=== PATIENT | female | born 1945 | race Hispanic/Latino ===

== ENCOUNTER → 2019-03-30 | Outpatient (CLI) | payer MEDICARE | END | disposition home or self-care (01) | LOC: RAH 12:54 | PROVIDERS: ATTEND Family Medicine | DX: Z12.31 Encounter for screening mammogram for malignant neoplasm of breast (principal) | CPT/HCPCS: 77067 ==

== ENCOUNTER → 2023-04-05 | Outpatient (CLI) | payer MEDICARE | END | disposition home or self-care (01) | LOC: SHCH 11:08 | PROVIDERS: ATTEND Internal Medicine | DX: I08.0 Rheumatic disorders of both mitral and aortic valves (principal); R94.31 Abnormal electrocardiogram [ECG] [EKG]; I10 Essential (primary) hypertension; E11.9 Type 2 diabetes mellitus without complications; E78.5 Hyperlipidemia, unspecified | CPT/HCPCS: 93306 ==

== ENCOUNTER 2024-11-16 09:35 | Inpatient (IN) | payer MEDICARE ==
[~2024-11-16] VITALS: Ht 165.1 cm; Wt 79.7 kg
[2024-11-16] VITALS (12 sets, daily range): BP systolic 91–148; BP diastolic 59–80; PULSE 61–98; RESP 16–20; TEMP 97.5–98.7; O2SAT 98–100
--- NOTE | 2024-11-16 10:51 | ERN ---
ED Note History of Present Illness Stated Complaint: MULTIPLE COMPLAINTS Chief Complaint: Multiple Complaints Time Seen by MD: 09:43 Dictation: Patient came to the ER complaining of not feeling well, feeling tired, weak, she stated that she was seen by her PCP and was started on antidepressant/antianxiety medication but she has been noncompliant with the medication. But lately she has been feeling more and more weak. Patient brought a bottle of citalopram 10 mg which she started taking again yesterday after symptoms has been worsening. Allergies: Coded Allergies: No Known Drug Allergies (Unverified Allergy, Unknown, 11/16/24) Past Medical History Past Medical History: Anxiety, Depression, Diabetes-Type II, High Cholesterol, Hypertension Surgical History: None Review of System Dictation NEGATIVE EXCEPT PER HPI Constitutional: Feeling weak and tired, no fever or chills. Eyes: Negative for injury, pain,redness, and discharge ENT: Negative for injury,pain or swelling Cardiovascular: denies chest pain, palpitations, and edema Respiratory: Negative for shortness of breath, cough, and wheezing, Abdomen/GI: Negative for abdominal pain, nausea, vomiting, diarrhea, and constipation Back: Negative for injury and pain : Negative for injury, bleeding and discharge MS/Extremity: Negative for injury and deformity Skin: Negative for rash, and discoloration Neuro: Negative for headache, weakness, numbness, tingling, and seizure Psych: Negative for suicide ideation, homicidal ideation, and hallucinations Initial Vital Sign VS Vital Signs Date Time Temp Pulse Resp B/P (MAP) Pulse Ox O2 Delivery O2 Flow Rate FiO2 11/16/24 09:42 98.2 70 16 166/80 100 Room Air 11/16/24 12:29 0 21 Physical Exam Dictation General: awake, alert, NAD Head/Face: Normocephalic, atraumatic Eyes: PERRL, EOMI, vision at baseline ENT: oral cavity clear, TMs clear, no signs of infection Neck: Trachea midline, supple, no nuchal rigidity Cardiovascular: RRR, normal S1/S2, No MRGs, no JVD Respiratory: CTAB, no respiratory distress, No rales or wheezes Abdomen: Soft , no tender Skin: Warm, dry, normal turgor, no rash MS/Extremity: Pulses equal, no cyanosis, neurovascular intact, FROM Neuro: COAx4, GCS 15, strength 5/5, CN 2-12 intact, normal cerebellar exam, normal gait, Psych: Normal behavior, mood, and affect normal Results (Laboratory/Radiology) Laboratory/Radiology Laboratory Tests Test 11/16/24 10:55 11/16/24 12:18 11/16/24 12:37 White Blood Count 10.1 K/uL (4.8-10.8) Red Blood Count 4.26 MIL/uL (4.00-5.50) Hemoglobin 12.7 g/dL (12.0-16.0) Hematocrit 38.4 % (36-48) Mean Corpuscular Volume 90.1 fL (79-99) Mean Corpuscular Hemoglobin 29.8 pg (27.0-33.0) Mean Corpuscular Hemoglobin Concent 33.1 g/dL (32.0-36.0) Red Cell Distribution Width 13.2 % (11.0-15.5) Platelet Count 246 K/uL (130-400) Mean Platelet Volume 10.9 fL (7.5-10.5) H Immature Granulocyte % (Auto) 0.3 % (0-1) Neutrophils (%) (Auto) 74.6 % (40.0-77.0) Lymphocytes (%) (Auto) 19.4 % (21.0-51.0) L Monocytes (%) (Auto) 4.7 % (3.0-13.0) Eosinophils (%) (Auto) 0.6 % (0.0-8.0) Basophils (%) (Auto) 0.4 % (0.0-5.0) Neutrophils # (Auto) 7.5 K/uL (1.8-7.7) Lymphocytes # (Auto) 2.0 K/uL (1.0-4.8) Monocytes # (Auto) 0.5 K/uL (0.1-1.0) Eosinophils # (Auto) 0.06 K/uL (0.00-0.70) Basophils # (Auto) 0.04 K/uL (0.00-0.20) Absolute Immature Granulocyte (auto 0.03 K/uL (0-1) Nucleated Red Blood Cells 0.0 % (0.0-0.19) Prothrombin Time 10.3 SEC (9.6-11.6) Prothromb Time International Ratio <= 0.93 (0.85-1.15) Activated Partial Thromboplast Time 27.3 SEC (26.3-35.5) Sodium Level 141 mmol/L (136-145) Potassium Level 4.0 mmol/L (3.5-5.1) Chloride Level 103 mmol/L (101-111) Carbon Dioxide Level 31 mmol/L (21-32) Blood Urea Nitrogen 27 mg/dL (7-18) H Creatinine 1.3 mg/dL (0.5-1.0) H Glomerular Filtration Rate Calc 42 mL/min (>90) Random Glucose 164 mg/dL (70-105) H Total Calcium 9.7 mg/dL (8.5-10.1) Troponin I High Sensitivity 2662 ng/L (4-50) *H 2024 ng/L (4-50) *H B-Type Natriuretic Peptide 108 pg/mL (0-100) H Urine Color LIGHT-YELLOW (YELLOW) Urine Appearance CLEAR (CLEAR) Urine pH 5.5 (5.0-8.0) Urine Specific [place] 1.013 (1.001-1.031) Urine Protein 20 mg/dL (NEGATIVE) H Urine Glucose (UA) NEGATIVE mg/dL (NEGATIVE) Urine Ketones 5 mg/dL (NEGATIVE) H Urine Occult Blood NEGATIVE (NEGATIVE) Urine Nitrate NEGATIVE (NEGATIVE) Urine Bilirubin NEGATIVE mg/dL (NEGATIVE) Urine Urobilinogen 0.2 mg/dL (0.2-1.0) Urine Leukocyte Esterase 250 Jeane/uL (NEGATIVE) H Urine RBC 0-1 /HPF (0-1) Urine WBC 11-25 /HPF (0-1) H Urine Bacteria MANY /HPF (None Seen) Urine Yeast RARE /HPF (None Seen) ED Course ED Course Orders Procedure Category Date Status Time Cbc With Differential LAB 11/16/24 Complete 10:43 Basic Metabolic Panel LAB 11/16/24 Complete 10:43 Urinalysis Profile LAB 11/16/24 Complete 10:43 Troponin I High LAB 11/16/24 Complete Sensitivity 10:43 12 Lead Ekg Tracing- EKG 11/16/24 Logged Technical 12:13 B-Type Natriuretic LAB 11/16/24 Complete Peptide 12:13 Pt And Ptt LAB 11/16/24 Complete 12:13 Chest 1vw RAD 11/16/24 Resulted 12:14 Chest 1vw RAD 11/16/24 Logged 12:14 Aspirin 325mg Tab PHA 11/16/24 Complete (Aspirin 325mg Tab) 12:30 Metoprolol Tartrate PHA 11/16/24 Complete 25 Mg Tab (Lopressor 12:30 Initiate Heparin DONELL 11/16/24 In Process Treatment Pro 12:26 Heparin 5,000 Unit PHA 11/16/24 In Process Vial (Heparin 5,000 U 13:30 Heparin 25,000 PHA 11/16/24 In Process Units/250ml D5w 13:30 Heparin Protocol CPOE 11/16/24 Transmitted Monitoring 12:26 Troponin I High LAB 11/16/24 Complete Sensitivity 12:28 Culture Urine CHICA 11/16/24 In Process 12:51 Current Medications Medications (Trade) Dose Ordered Sig/Loyda Route PRN Reason Start Time Stop Time Status Last Admin Dose Admin Aspirin (Aspirin 325mg Tab) 325 mg ONCE ONCE PO 11/16/24 12:30 11/16/24 12:31 DC 11/16/24 12:30 Heparin Sodium (Porcine) (HEParin 5,000 UNIT VIAL) *calculation based on ACTUAL B... AD PRN IV HEPARIN PROTOCOL 11/16/24 13:30 12/16/24 13:29 11/16/24 12:40 Heparin Sodium/ Dextrose 250 ml @ 0 mls/hr Q6H IV 11/16/24 13:30 12/16/24 13:29 11/16/24 12:37 Metoprolol Tartrate (loprESSOR) 12.5 mg ONCE ONCE PO 11/16/24 12:30 11/16/24 12:31 DC 11/16/24 12:32 Vital Signs Date Time Temp Pulse Resp B/P (MAP) Pulse Ox O2 Delivery O2 Flow Rate FiO2 11/16/24 12:29 98.4 88 18 174/74 98 Room Air* 0 21 11/16/24 09:42 98.2 70 16 166/80 100 Room Air Medical Decision Making MDM 78-year-old female who presented to ER complaining of tiredness, weakness. She mentioned history of anxiety and has been treated for that with the citalopram by PCP. Patient is noncompliant with medication. 1 possible electrolyte disturbance 2. Depression 3. UTI. DX & DISP Disposition: Inpatient Decision to Admit Date: Nov 16, 2024 Decision to Admit Time: 13:33 Departure Impression: Primary Impression: Non-ST elevated myocardial infarction Condition: Stable Referrals: TRESA EDWARDS DO (PCP) Patient was admitted by the hospitalist team for further workup by Cardiology, GLASS BLOWING LATHE OPERATOR from . Lukas rubber mill operator was called and case discussed with the him. BAR REYES MD Nov 16, 2024 10:51
[2024-11-16 11:06] LABS: BASOPHILS # (AUTO) 0.04 K/uL (0.00-0.20); BASOPHILS % (AUTO) 0.4 % (0.0-5.0); EOSINOPHILS # (AUTO) 0.06 K/uL (0.00-0.70); EOSINOPHILS % (AUTO) 0.6 % (0.0-8.0); HEMATOCRIT 38.4 % (36-48); IMMATURE GRANULOCYTE ABSOLUTE 0.03 K/uL (0-1); LYMPHOCYTES % (AUTO) 19.4 % (21.0-51.0); MEAN CORPUSCULAR HEMOGLOBIN 29.8 pg (27.0-33.0); MEAN CORPUSCULAR HGB CONC 33.1 g/dL (32.0-36.0); MEAN CORPUSCULAR VOLUME 90.1 fL (79-99); MONOCYTES # (AUTO) 0.5 K/uL (0.1-1.0); MONOCYTES % (AUTO) 4.7 % (3.0-13.0); NEUTROPHILS # (AUTO) 7.5 K/uL (1.8-7.7); NEUTROPHILS % (AUTO) 74.6 % (40.0-77.0); PLATELET COUNT (AUTO) 246 K/uL (130-400); RED BLOOD CELL COUNT(AUTO) 4.26 MIL/uL (4.00-5.50); RED CELL DISTRIBUTION WIDTH 13.2 % (11.0-15.5); WHITE BLOOD COUNT (AUTO) 10.1 K/uL (4.8-10.8)
[2024-11-16 11:14] LABS: CREATININE 1.3 mg/dL (0.5-1.0)
--- NOTE | 2024-11-16 12:04 | NUR ---
[facility] [id number]
[2024-11-16] MEDS: ASPIRIN 325MG TAB PO ONE (12:30)
[2024-11-16] MEDS: metoPROLOL tartRATE 25 MG TAB PO ONE ×2 (12:32→15:00)
[2024-11-16 12:33] LABS: INR <= 0.93 (0.85-1.15); PROTHROMBIN TIME 10.3 SEC (9.6-11.6)
[2024-11-16 12:35] LABS: PARTIAL THROMBOPLASTIN TIME 27.3 SEC (26.3-35.5)
[2024-11-16] MEDS: HEParin 25,000 UNITS/250ML D5W 250 ML IV SCH (12:37)
[2024-11-16] MEDS: HEParin 5,000 UNIT VIAL IV PRN (12:40)
[2024-11-16 12:43] LABS: APPEARANCE,URINE CLEAR (CLEAR); BILIRUBIN,URINE NEGATIVE (NEGATIVE); COLOR,URINE LIGHT-YELLOW (YELLOW); GLUCOSE, URINE (UA) NEGATIVE (NEGATIVE); KETONES,URINE 5 mg/dL (NEGATIVE); LEUKOCYTE ESTERASE ,URINE 250 Leu/uL (NEGATIVE); NITRATE,URINE NEGATIVE (NEGATIVE); OCCULT BLOOD,URINE NEGATIVE (NEGATIVE); PH,URINE 5.5 (5.0-8.0); PROTEIN,URINE 20 mg/dL (NEGATIVE); UROBILINOGEN,URINE 0.2 mg/dL (0.2-1.0)
[2024-11-16 12:51] LABS: ADD UA MICROSCOPIC YES
[2024-11-16 12:53] LABS: BACTERIA,URINE MANY /HPF (None Seen); MUCUS,URINE RARE LPF (None Seen); RBC,URINE 0-1 /HPF (0-1); YEAST,URINE BUDDING RARE /HPF (None Seen)
--- NOTE | 2024-11-16 13:23 | HMCIMG ---
Exam Type: CHEST 1VW Clinical Information: CP Comparison: None Findings: The lungs are clear of infiltrates. The heart is normal in size. The bony and soft tissue structures of the chest are unremarkable. Impression: Clear lungs.
--- NOTE | 2024-11-16 13:50 | HP ---
[facility] PHYS[facility] Date of Service: Nov 16, 2024 Time of Service: 13:35 HISTORY OF PRESENT ILLNESS: [ ] admission date: 11/16/24 PCP: Hiwot Stockton DO chief complaints: weakness, chest tightness This is a 78-year-old female with a significant medical history of diabetes type 2, hypertension, hyperlipidemia presents in ER with chief complaints of weakness, and chest discomfort. Onset ongoing for one-week. Symptoms come and go duration about 30 minutes. Chest pain location :midsternal radiates to mid back associated with GI symptoms nausea and vomiting. Severity moderate. Denies dizziness, palpitation, shortness for breath with minimal exertion, chills and fever. Patient reports the last few three days symptoms have been constantly and decided to come to ER for further evaluation and treatment. ER workup troponin elevated non-STEMI, urinalysis positive for UTI. Labs WBCs unremarkable chemistry [id number] potassium 4.0 BUN27 creatinine 1.3 GFR 42 glucose 164 troponin 2662, 2024, BNP went away checks x-ray no signs of infiltrates. Patient was seen in ED patient appears fragile and weak. Reports no chest pain at this moment. ER initiated heparin drip tooling manager's consulted. REVIEW OF SYSTEMS a 14 point ROS obtained all relevant positives were documented otherwise ROS negative. PAST MEDICAL HISTORY: [ ] Refer to HPI PAST SURGICAL HISTORY: [ ] None PAST SOCIAL HISTORY: [ ] Denies smoking tobacco products, and alcohol use FAMILY HISTORY: [ ] Heart disease, diabetes Coded Allergies: No Known Drug Allergies (Unverified Allergy, Unknown, 11/16/24) PHYSICAL EXAM GENERAL APPEARANCE: The patient is awake, alert, and oriented, in no acute cardiopulmonary distress. NEUROLOGICAL: Cranial nerves II-XII grossly intact. Motor is 5/5 in bilateral upper and lower extremities proximal to distal. No sensory deficits. HEENT: Face is symmetric. Pupils are equal and reactive. Extraocular movements are intact. NECK: Supple. No JVD. No thyromegaly. No submental, submandibular, pre- /postauricular, occipital or supraclavicular lymphadenopathy. CHEST: Normal chest expansion. No Telemetry. LUNGS: Absence of any rales, rhonchi or any wheezing. CARDIOVASCULAR: Regular. S1 and S2 normal. No appreciable rubs, murmurs or gallops. ABDOMEN: Soft, nontender, and nondistended. There is no rebound, voluntary guarding, or rigidity. : Deferred. No Enriquez. EXTREMITIES: Non-edematous and not cyanotic. No clubbing. Good capillary refill. SKIN: No skin breakdown. Vital Sign (Last 24 Hours) 11/16/24 12:29 Temp 98.4 Pulse 88 Resp 18 B/P (MAP) 174/74 Pulse Ox 98 O2 Delivery Room Air* O2 Flow Rate 0 FiO2 21 LABS: Laboratory: Test 11/16/24 12:37 11/16/24 12:18 11/16/24 10:55 Range/Units Troponin I High Sensitivity 2023 *H 4-50 ng/L Urine Color LIGHT-YELLOW YELLOW Urine Appearance CLEAR CLEAR Urine pH 5.5 5.0-8.0 Urine Specific [place] 1.013 1.001-1.031 Urine Protein 20 H NEGATIVE mg/dL Urine Glucose (UA) NEGATIVE NEGATIVE mg/dL Urine Ketones 5 H NEGATIVE mg/dL Urine Occult Blood NEGATIVE NEGATIVE Urine Nitrate NEGATIVE NEGATIVE Urine Bilirubin NEGATIVE NEGATIVE mg/dL Urine Urobilinogen 0.2 0.2-1.0 mg/dL Urine Leukocyte Esterase 250 H NEGATIVE Jeane/uL Urine RBC 0-1 0-1 /HPF Urine WBC 11-25 H 0-1 /HPF Urine Bacteria MANY None Seen /HPF Urine Yeast RARE None Seen /HPF White Blood Count 10.1 4.8-10.8 K/uL Red Blood Count 4.26 4.00-5.50 MIL/uL Hemoglobin 12.7 12.0-16.0 g/dL Hematocrit 38.4 36-48 % Mean Corpuscular Volume 90.1 79-99 fL Mean Corpuscular Hemoglobin 29.8 27.0-33.0 pg Mean Corpuscular Hemoglobin Concent 33.1 32.0-36.0 g/dL Red Cell Distribution Width 13.2 11.0-15.5 % Platelet Count 246 130-400 K/uL Mean Platelet Volume 10.9 H 7.5-10.5 fL Immature Granulocyte % (Auto) 0.3 0-1 % Neutrophils (%) (Auto) 74.6 40.0-77.0 % Lymphocytes (%) (Auto) 19.4 L 21.0-51.0 % Monocytes (%) (Auto) 4.7 3.0-13.0 % Eosinophils (%) (Auto) 0.6 0.0-8.0 % Basophils (%) (Auto) 0.4 0.0-5.0 % Neutrophils # (Auto) 7.5 1.8-7.7 K/uL Lymphocytes # (Auto) 2.0 1.0-4.8 K/uL Monocytes # (Auto) 0.5 0.1-1.0 K/uL Eosinophils # (Auto) 0.06 0.00-0.70 K/uL Basophils # (Auto) 0.04 0.00-0.20 K/uL Absolute Immature Granulocyte (auto 0.03 0-1 K/uL Nucleated Red Blood Cells 0.0 0.0-0.19 % Prothrombin Time 10.3 9.6-11.6 SEC Prothromb Time International Ratio <= 0.93 0.85-1.15 Activated Partial Thromboplast Time 27.3 26.3-35.5 SEC Sodium Level 141 136-145 mmol/L Potassium Level 4.0 3.5-5.1 mmol/L Chloride Level 103 101-111 mmol/L Carbon Dioxide Level 31 21-32 mmol/L Blood Urea Nitrogen 27 H 7-18 mg/dL Creatinine 1.3 H 0.5-1.0 mg/dL Glomerular Filtration Rate Calc 42 >90 mL/min Random Glucose 164 H 70-105 mg/dL Total Calcium 9.7 8.5-10.1 mg/dL B-Type Natriuretic Peptide 108 H 0-100 pg/mL Current Medications Medications (Trade) Dose Ordered Sig/Loyda Route PRN Reason Start Time Stop Time Status Last Admin Dose Admin Heparin Sodium (Porcine) (HEParin 5,000 UNIT VIAL) *calculation based on ACTUAL B... AD PRN IV HEPARIN PROTOCOL 11/16/24 13:30 12/16/24 13:29 11/16/24 12:40 6,000 UNIT Heparin Sodium/ Dextrose 250 ml @ 0 mls/hr Q6H IV 11/16/24 13:30 12/16/24 13:29 11/16/24 12:37 13.7 MLS/HR DIAGNOSTICS / RADIOLOGY: [ ] REASON: CP ORDERING PHYSICIAN: BAR REYES MD PROCEDURE: CXR1VW - CHEST 1VW Exam Type: CHEST 1VW Clinical Information: CP Comparison: None Findings: The lungs are clear of infiltrates. The heart is normal in size. The bony and soft tissue structures of the chest are unremarkable. Impression: Clear lungs. ASSESSMENT: Non-STEMI POA Unstable angina POA HTN uncontrolled POA KHURRAM on Chronic ARF POA UTI POA DM Type II: Hyperglycemia POA Chronic problems; anxiety/depression HLD PLAN: Admit: PCCU condition: Stable Status: Full code Heparin drip as per protocol Consultants cardiology's Cardiac enzymes every 6 hours x2 A.cs. protocol aspirin, statin and beta-edgard Antibiotics: Rocephin1 g we will follow-up urine cultures Test: Echo to evaluate LV function Labs cbc, cmp, mag+ in a.m. we will get TSH lipid panel Replace electrolytes as needed as per protocol to keep potassium above 4.0 magnesium 2.0. Home medications pending to be reviewed by RN nurse. PRN: MEDICATIONS Tylenol 650 mg po every 4 hrs for fever zofran 4 mg IV every 6 hrs for n/v Hydralazine 5 mg IV every 4 hrs systolic pressure > 160 bowel regiment: lactulose 20 gm PO BID PRN constipation Pain management: None Supportive measures: DVT ppx, GI ppx all questions answered time spent: > 35 min Supervising MD: c/d This document was generated in part using voice recognition software, occasional wrong word or sound alike substitutions may have occurred due to the inherent limitations of voice recognition software. Read the chart carefully and recognize using context, where the substitutions have occurred. Although every effort was made to edit the content, digital media representative and typing errors may occur ATTESTATION BY PHYSICIAN I have seen and examined the patient. I reviewed the documentation, medical decision making, and treatment plan as noted by the mid-level provider above. I agree with the findings and plan of care. Luciana Meneses MD, ELIZABETH NP Nov 16, 2024 13:50
[2024-11-16] MEDS ORDERED: ondanSETRON 4MG INJ IVP PRN (14:00)
[2024-11-16] MEDS ORDERED: acetaMINOPHEN 325 MG TAB PO PRN (14:00)
[2024-11-16] MEDS: NITROGLYCERIN 1GM OINT 1 INCH/1GM TD ONE (14:25)
[2024-11-16] MEDS: cefTRIAXone 1G VIAL IVPB SCH (14:25)
[2024-11-16] MEDS ORDERED: cloPIDOgrel 300MG TAB PO SCH (14:30)
[2024-11-16] MEDS ORDERED: LACTULOSE 20 GM/30 ML UDCUP PO PRN (14:30)
[2024-11-16] MEDS ORDERED: PoTASSium chloRIDE 20MEQ/100ML 100 ML IV PRN (14:30)
[2024-11-16] MEDS ORDERED: PoTASSium chl 10% ELIXIR 20MEQ 20 MEQ/15 ML UDCUP PO PRN (14:30)
[2024-11-16] MEDS ORDERED: 0.9% NACL 500ML IV.SOLN 500 ML IV SCH (14:30)
[2024-11-16] MEDS: ondanSETRON 4MG INJ IVP ONE (14:38)
[2024-11-16] MEDS: morPHINE 4 MG SYG IVP ONE (14:38)
[2024-11-16] MEDS: cloPIDOgrel 300MG TAB PO ONE (15:00)
[2024-11-16] MEDS ORDERED: NITROGLYCERIN 0.4 MG SL TAB SL PRN (15:00)
[2024-11-16] MEDS ORDERED: metoPROLOL tartRATE 25 MG TAB PO SCH ×2 (15:00→21:00)
[2024-11-16 15:27] LABS: THYROID STIMULATING HORMONE 1.79 uIU/mL (0.36-3.74)
[2024-11-16] MEDS ORDERED: LIDOCAINE HCL 400MG/20ML VIAL ONE (15:45)
[2024-11-16] MEDS ORDERED: NITROGLYCERIN 50MG VIAL ONE (15:46)
[2024-11-16] MEDS ORDERED: HEParin-NS 1,000 UNIT/500 ML 1,000 ML IV ONE (15:46)
[2024-11-16] MEDS ORDERED: IOHEXOL-350 75 ML VIAL IV ONE ×2 (15:46→16:27)
[2024-11-16] MEDS ORDERED: FENTanyl CITRate PF 50 MCG/1 ML 2ML VIAL ONE (15:57)
[2024-11-16] MEDS ORDERED: MIDAZOLAM HCL 1 MG/ML 2ML VIAL ONE (15:57)
[2024-11-16] MEDS: INSULIN humuLIN R 100 UNIT/ML 3ML SQ SCH (16:30)
--- NOTE | 2024-11-16 16:54 | PRN ---
Left Heart Cath-Truong PROCEDURE: 1. Right common femoral arterial sheath placement. 2. Selective coronary angiogram. 3. Left heart catheterization. 4. Left ventriculogram. 5. Left subclavian arteriogram 6. Conscious sedation INDICATIONS: Non STEMI Post infarct angina DESCRIPTION OF PROCEDURE: The patient was brought to the catheterization suite and prepped and draped in sterile fashion. An IV was started, if not already in place and both groins were exposed for arterial access. 1% lidocaine was used for local anesthesia and then a micropuncture kit was used to gain access and once free-flowing blood was seen, modified Seldinger technique was utilized to place a 6 [place] sheath into the right common femoral artery. Next, preformed JL4 and JR4 Catheters were then used to selectively engage the [place] coronary vessels and multiple hand contrast injections were performed in different views to define the coronary anatomy. The JR4 catheter was then used to selectively engage the left subclavian artery and a contrast injection was performed to define patency of left internal mammary artery. Next, a 6 [place] angled pigtail catheter was then used across aortic valve pressure measurements were obtained and then a left ventriculogram was performed in the 30 DASH position. Next pullback method was performed. At end of case a sheath shot was done and then closure of arteriotomy site was performed with the use of a Mynx system and no complications occurred. FINDINGS: It should be noted that all the vessels are noted to be severely calcified on fluoroscopy alone involving the left main LAD left circumflex and RCA. The left main artery bifurcates into the LAD and left circumflex is severely calcified and has 30-50% stenosis noted throughout its course. The proximal LAD is occluded 100% but is filling with significant [id number] collaterals from the RCA with filling of the entirety of the LAD noted and there was a 90% apical LAD stenosis present upon retrograde filling. The left circumflex artery has an ostial stenosis of approximately 70% before it gives rise to 2 small obtuse marginal branch vessels. The ongoing left circumflex does give rise to a moderate sized obtuse marginal branch 3. Which is subtotaled in its proximal segment before it bifurcates distally. The ongoing interventricular circumflex vessel has an 85% stenosis distally. The right coronary artery has luminal irregularities noted throughout the body of the RCA before it gives rise to the RPDA with an ostial 85-90% stenosis and the RPL which has a 95-98% stenosis noted in its mid segment. The left subclavian artery is patent as is the left internal mammary artery. Ejection fraction is noted to be 65%. There was no evidence of aortic stenosis or mitral regurgitation. RECOMMENDATIONS: 1. CT surgery consultation for surgical revascularization consideration 2. Optimize goal-directed medical therapy as blood pressure tolerates. Three. Echocardiography to be performed 4. Anticoagulation with heparin CJ TRUONG MD Nov 16, 2024 16:54
--- NOTE | 2024-11-16 17:25 | EKG ---
[facility] Test Date: 2024-11-16 Test Time: 14:27:43 Pat Name: GUS MANTILLA Department: [facility] Room: 204 1 Gender: F Behavioral Health Associate: [id number] : 1945 Requested By: ASHLEE BOWEN Order Number: [id number] Reading MD: Nikos Truong Measurements Intervals [place] Rate: 73 P: 22 DC: 135 QRS: -31 QRSD: 86 T: 144 QT: 379 QTc: 419 Interpretive Statements Sinus rhythm Probable LVH with secondary repol abnrm Anterior Q waves, possibly due to LVH No previous ECG available for comparison Electronically Signed On 11-16-2024 17:40:59 TRIMMER LOADER by Nikos Truong Please click the below link to view image of tracing.
--- NOTE | 2024-11-16 17:59 | CONS ---
CHIEF COMPLAINT: [id number] IN. SOURCE: The patient, is reliable, as well as family members. Medical record is also reviewed. OUTPATIENT DOCTOR: Dr. Mi. OUTPATIENT SPINNER BOX: Dr. Law. HISTORY OF PRESENT ILLNESS: The patient is a 78-year-old female with a history of hypertension, dyslipidemia, type 2 diabetes, depression, and asymptomatic CAD, who presented to the ER after a week-long history of stuttering anginal symptoms. She would describe random episodes of a heat-like sensation starting on her thighs, traveled upward. This was accompanied by shortness of breath. If she took some deep breaths, it would subside. She also noticed a baseline shortness of breath at this time. Symptoms continued intermittently over the week, relieved with deep breathing and burping. This morning, symptoms were much worse, which she described as 8/10 in intensity. Nothing seemed to provoke them. Nothing seemed to relieve them. She presented to the ER, where initial EKG showed sinus with lateral ST depressions. Troponins elevated initially at 2600, then falling to 2000. BNP 108, creatinine 1.3. H and H and CBC in general unremarkable. She had a positive UTI. She was given aspirin, heparin drip, 12.5 mg of metoprolol. She is currently resting in bed, feeling better, but still having 5/10 chest discomfort. She did state that the aspirin and the other interventions here helped. She had been attributing her symptoms to depression and is surprised that there is something going on with her heart. Blood pressures in the 160s and 170s. The patient is followed by Dr. Law in the office who last saw her in 08/2024. Previously, she was followed by Dr. Conklin and had an abnormal exercise treadmill in 2014 with some [address] depressions in the inferior leads. She had an echo in 03/2022, which revealed EF of 60%-65%, some calcified aortic leaflets, but no stenosis. She has been managed medically on aspirin, carvedilol 6.25, amlodipine 5 mg, and atorvastatin 40 mg. She was normally very active, doing aerobics 3 times a week, but this week, she was just too tired to do them. She smoked some in her 30s. She used to drink beer occasionally, but not recently. Mother had open heart surgery in her 60s. REVIEW OF SYSTEMS: No GI or bleeding. No fever, cough. No nausea or vomiting currently. No falls, no unexplained weight changes. Blood sugar is well controlled. Last A1c in the 7% range. ALLERGIES: No known. HOME MEDICATIONS: Include: * Aspirin 81 mg daily. * Citalopram 10 mg daily. * Janumet one tablet b.i.d. * Amlodipine 5 mg b.i.d. * Glimepiride 1.5 mg daily. * Atorvastatin 40 mg nightly. * Carvedilol 6.25 b.i.d. * Olmesartan/hydrochlorothiazide 40/25 one tablet daily. PAST MEDICAL HISTORY: * Coronary artery disease. * Abnormal exercise treadmill stress test in [address]ressions inferiorly. * March 2023 echo, EF 60%-65%. * Type 2 diabetes, controlled. * Hypertension. * Dyslipidemia. * Depression. PAST SURGICAL HISTORY: None. FAMILY HISTORY: Mother had open heart surgery in her 60s. PHYSICAL EXAMINATION: GENERAL: Mildly obese elderly female, resting in bed, no distress. VITAL SIGNS: Temperature 98.4, pulse 88, respiratory rate 19, blood pressure 174/74. HEENT: Hearing intact. No facial asymmetry, nasal discharge, or icterus. NECK: Symmetric. Midline trachea. No bruits. CARDIOVASCULAR: Rhythm and rate regular. No murmurs, no rubs. No chest wall discomfort to palpation. EXTREMITIES: Right dorsal pulse 2+, left poorly palpable. No edema. RESPIRATORY: Grossly clear. No wheezing or rhonchi or crackles. GASTROINTESTINAL: No guarding or distention. MUSCULOSKELETAL: No amputations or deformities. Range of motion grossly normal. SKIN: No ecchymosis or ulcers. Warm to touch. NEUROLOGIC: No tremors. Speech clear. PSYCHIATRY: Alert, oriented x 3, cooperative, coherent, and answering all questions appropriately. LABORATORY DATA: As described above, positive UTI. Troponin decreased from 2600 to 2000. BNP 108. Creatinine 1.3. CBC unremarkable. EKGs: Serial EKGs have shown sinus with lateral ST depressions, no progression from her first to the second tracing. Chest x-ray is unremarkable. No effusions or cardiomegaly. ASSESSMENT: * [id number] myocardial infarction. * Known coronary artery disease, previously asymptomatic. * Abnormal exercise treadmill test in [address] with [address] depressions. * March 2023 echo, EF 60%-65%. * Type 2 diabetes, controlled. * Hypertension. * Dyslipidemia. * Depression. PLAN: The patient presented with intermittent episodes of burning chest discomfort and shortness of breath throughout the week, much worse this morning. She had attributed these to her depression. Troponin was 2600 on admission, down to 2000 on repeat. She has been receiving heparin drip, aspirin, metoprolol. We will give her some nitropaste and increase the metoprolol to 25 b.i.d. Did discuss treatment options, including proceeding with coronary angiography with possible stenting. Risks, benefits, and details of the procedure were explained and she would like to proceed. The patient seen and examined and all studies were reviewed with Dr. Truong. TID: [id number] RECEIPT: [id number]
[2024-11-16 18:26] LABS: INR 0.97 (0.85-1.15); PROTHROMBIN TIME 10.9 SEC (9.6-11.6)
[2024-11-16 18:27] LABS: PARTIAL THROMBOPLASTIN TIME 79.4 SEC (26.3-35.5)
[2024-11-16] MEDS: FAMOTIDINE 20MG TAB PO SCH (20:08)
[2024-11-16] MEDS: metoPROLOL tartRATE 25 MG TAB PO SCH (20:08)
[2024-11-16] MEDS: atorVAStatin 40 MG TABLET PO SCH (20:08)
--- NOTE | 2024-11-16 20:49 | EKG ---
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
[2024-11-16] MEDS ORDERED: atorVAStatin 20 MG TABLET PO SCH (21:00)
[2024-11-17] VITALS (9 sets, daily range): BP systolic 105–135; BP diastolic 58–73; PULSE 56–70; RESP 16–18; TEMP 97.7–98.7; O2SAT 97
--- NOTE | 2024-11-17 02:00 | NUR ---
REPORT GIVEN TO NURSE BI RICHMOND PT VITAL SIGNS STABLE, PUNCTURE SITE TO RT GROIN WITH NO SS OF BLEEDING/HEMATOMA, HEPARIN DRIP ON HOLD AT THIS TIME, AND TO BE RESUMED AT 0220, WILL CONT TO MONITOR
[2024-11-17 04:53] LABS: BASOPHILS # (AUTO) 0.04 K/uL (0.00-0.20); BASOPHILS % (AUTO) 0.4 % (0.0-5.0); EOSINOPHILS # (AUTO) 0.08 K/uL (0.00-0.70); EOSINOPHILS % (AUTO) 0.9 % (0.0-8.0); IMMATURE GRANULOCYTE ABSOLUTE 0.02 K/uL (0-1); LYMPHOCYTES # (AUTO) 2.2 K/uL (1.0-4.8); MEAN CORPUSCULAR HEMOGLOBIN 29.7 pg (27.0-33.0); MEAN CORPUSCULAR HGB CONC 32.6 g/dL (32.0-36.0); MEAN CORPUSCULAR VOLUME 90.9 fL (79-99); MONOCYTES # (AUTO) 0.8 K/uL (0.1-1.0); MONOCYTES % (AUTO) 8.1 % (3.0-13.0); NEUTROPHILS # (AUTO) 6.3 K/uL (1.8-7.7); NEUTROPHILS % (AUTO) 67.4 % (40.0-77.0); PLATELET COUNT (AUTO) 249 K/uL (130-400); RED BLOOD CELL COUNT(AUTO) 3.74 MIL/uL (4.00-5.50); RED CELL DISTRIBUTION WIDTH 13.2 % (11.0-15.5); WHITE BLOOD COUNT (AUTO) 9.3 K/uL (4.8-10.8)
[2024-11-17 05:09] LABS: ALBUMIN 2.9 g/dL (3.5-5.0); BILIRUBIN,TOTAL 0.4 mg/dL (0.2-1.0); CREATININE 1.3 mg/dL (0.5-1.0); MAGNESIUM 1.7 mg/dL (1.80-2.40); POTASSIUM 3.8 mmol/L (3.5-5.1); TOTAL PROTEIN, SERUM 6.7 g/dL (6.0-8.3)
[2024-11-17] MEDS: MAGNESIUM 2GM PREMIX 50ML 50 ML IV PRN (05:21)
--- NOTE | 2024-11-17 08:45 | PN ---
[facility] PROGRESS NOTE Date of Service: Nov 17, 2024 Time of Service: 08:38 SUBJECTIVE: [ ] admission date: 11/16/24 PCP: Hiwot Stockton DO chief complaints: weakness, chest tightness This is a 78-year-old female with a significant medical history of di abetes type 2, hypertension, hyperlipidemia presents in ER with chief complaints of weakness, and chest discomfort. Onset ongoing for one-week. Symptoms come and go duration about 30 minutes. Chest pain location :midsternal radiates to mid back associated with GI symptoms nausea and vomiting. Severity moderate. Denies dizziness, palpitation, shortness for breath with minimal exertion, chills and fever. Patient reports the last few three days symptoms have been constantly and decided to come to ER for further evaluation and treatment. ER workup troponin elevated non-STEMI, urinalysis positive for UTI. 11/17/24 Status post left heart catheterization. CT surgery consulted for surgical revascularization will followed recommendations. Is fully awake alert oriented x3. continues on heparin drip no chest pain or arrhythmias overnight. REVIEW OF SYSTEMS a 14 point ROS obtained all relevant positives were documented otherwise ROS negative. PHYSICAL EXAM GENERAL APPEARANCE: The patient is awake, alert, and oriented, in no acute cardiopulmonary distress. NEUROLOGICAL: Cranial nerves II-XII grossly intact. Motor is 5/5 in bilateral upper and lower extremities proximal to distal. No sensory deficits. HEENT: Face is symmetric. Pupils are equal and reactive. Extraocular movements are intact. NECK: Supple. No JVD. No thyromegaly. No submental, submandibular, pre- /postauricular, occipital or supraclavicular lymphadenopathy. CHEST: Normal chest expansion. No Telemetry. LUNGS: Absence of any rales, rhonchi or any wheezing. CARDIOVASCULAR: Regular. S1 and S2 normal. No appreciable rubs, murmurs or gallops. ABDOMEN: Soft, nontender, and nondistended. There is no rebound, voluntary guarding, or rigidity. : Deferred. No Enriquez. EXTREMITIES: Non-edematous and not cyanotic. No clubbing. Good capillary refill. SKIN: No skin breakdown. Vital Signs (last 8hr) Date Time Temp Pulse Resp B/P (MAP) Pulse Ox O2 Delivery O2 Flow Rate FiO2 11/17/24 07:09 97.9 59 18 128/65 98 Room Air 11/17/24 03:31 98.1 62 18 105/64 98 Room Air LABS: Laboratory: Test 11/17/24 07:47 11/17/24 05:35 11/17/24 04:18 11/16/24 18:06 Range/Units Activated Partial Thromboplast Time > 139.0 *H 26.3-35.5 SEC Whole Blood Glucose 162 H 70-110 MG/DL White Blood Count 9.3 4.8-10.8 K/uL Red Blood Count 3.74 L 4.00-5.50 MIL/uL Hemoglobin 11.1 L 12.0-16.0 g/dL Hematocrit 34.0 L 36-48 % Mean Corpuscular Volume 90.9 79-99 fL Mean Corpuscular Hemoglobin 29.7 27.0-33.0 pg Mean Corpuscular Hemoglobin Concent 32.6 32.0-36.0 g/dL Red Cell Distribution Width 13.2 11.0-15.5 % Platelet Count 249 130-400 K/uL Mean Platelet Volume 11.4 H 7.5-10.5 fL Immature Granulocyte % (Auto) 0.2 0-1 % Neutrophils (%) (Auto) 67.4 40.0-77.0 % Lymphocytes (%) (Auto) 23.0 21.0-51.0 % Monocytes (%) (Auto) 8.1 3.0-13.0 % Eosinophils (%) (Auto) 0.9 0.0-8.0 % Basophils (%) (Auto) 0.4 0.0-5.0 % Neutrophils # (Auto) 6.3 1.8-7.7 K/uL Lymphocytes # (Auto) 2.2 1.0-4.8 K/uL Monocytes # (Auto) 0.8 0.1-1.0 K/uL Eosinophils # (Auto) 0.08 0.00-0.70 K/uL Basophils # (Auto) 0.04 0.00-0.20 K/uL Absolute Immature Granulocyte (auto 0.02 0-1 K/uL Nucleated Red Blood Cells 0.0 0.0-0.19 % Sodium Level 141 136-145 mmol/L Potassium Level 3.8 3.5-5.1 mmol/L Chloride Level 104 101-111 mmol/L Carbon Dioxide Level 30 21-32 mmol/L Blood Urea Nitrogen 26 H 7-18 mg/dL Creatinine 1.3 H 0.5-1.0 mg/dL Glomerular Filtration Rate Calc 42 >90 mL/min Random Glucose 165 H 70-105 mg/dL Total Calcium 8.8 8.5-10.1 mg/dL Magnesium Level 1.70 L 1.80-2.40 mg/dL Total Bilirubin 0.4 0.2-1.0 mg/dL Aspartate Amino Transf (AST/SGOT) 10 10-37 U/L Alanine Aminotransferase (ALT/SGPT) 16 12-78 U/L Alkaline Phosphatase 72 50-136 U/L Total Protein 6.7 6.0-8.3 g/dL Albumin 2.9 L 3.5-5.0 g/dL Prothrombin Time 10.9 9.6-11.6 SEC Prothromb Time International Ratio 0.97 0.85-1.15 Troponin I High Sensitivity 1495 *H 4-50 ng/L Test 11/16/24 14:20 11/16/24 12:18 11/16/24 10:55 Range/Units Triglycerides Level 129 30-200 mg/dL Cholesterol Level 179 <200 mg/dL LDL Cholesterol 92 0-99 mg/dL HDL Cholesterol 71 35-85 mg/dL Thyroid Stimulating Hormone (TSH) 1.79 0.36-3.74 uIU/mL Urine Color LIGHT-YELLOW YELLOW Urine Appearance CLEAR CLEAR Urine pH 5.5 5.0-8.0 Urine Specific [place] 1.013 1.001-1.031 Urine Protein 20 H NEGATIVE mg/dL Urine Glucose (UA) NEGATIVE NEGATIVE mg/dL Urine Ketones 5 H NEGATIVE mg/dL Urine Occult Blood NEGATIVE NEGATIVE Urine Nitrate NEGATIVE NEGATIVE Urine Bilirubin NEGATIVE NEGATIVE mg/dL Urine Urobilinogen 0.2 0.2-1.0 mg/dL Urine Leukocyte Esterase 250 H NEGATIVE Jeane/uL Urine RBC 0-1 0-1 /HPF Urine WBC 11-25 H 0-1 /HPF Urine Bacteria MANY None Seen /HPF Urine Yeast RARE None Seen /HPF B-Type Natriuretic Peptide 108 H 0-100 pg/mL Current Medications Medications (Trade) Dose Ordered Sig/Loyda Route PRN Reason Start Time Stop Time Status Last Admin Dose Admin Acetaminophen (TYLenol 325MG TAB) 650 mg Q4H PRN PO TEMPERATURE GREATER THAN 101.5 11/16/24 14:00 12/16/24 13:59 Aspirin (Aspirin 81mg Chew Tab) 81 mg DAILY PO 11/17/24 09:00 12/17/24 08:59 Atorvastatin Calcium (LIPItor 20MG) 20 mg HS PO 11/16/24 21:00 11/16/24 14:43 DC Atorvastatin Calcium (LIPItor 40MG) 40 mg HS PO 11/16/24 21:00 12/16/24 20:59 11/16/24 20:08 40 MG Ceftriaxone Sodium (ROCEphine 1G INJ) 1 gm Q24H IVPB 11/16/24 14:00 11/26/24 13:59 11/16/24 14:25 1 GM Clopidogrel Bisulfate (plaVIX 300MG TAB) 300 mg ONCE PO 11/16/24 14:30 11/16/24 14:42 DC Clopidogrel Bisulfate (plaVIX 75MG) 75 mg DAILY PO 11/17/24 09:00 12/17/24 08:59 Famotidine (Pepcid 20mg Tab) 20 mg Q24H PO 11/16/24 21:00 12/16/24 20:59 11/16/24 20:08 20 MG Heparin Sodium (Porcine) (HEParin 5,000 UNIT VIAL) *calculation based on ACTUAL B... AD PRN IV HEPARIN PROTOCOL 11/16/24 13:30 12/16/24 13:29 11/16/24 12:40 6,000 UNIT Heparin Sodium/ Dextrose 250 ml @ 0 mls/hr Q6H IV 11/16/24 13:30 12/16/24 13:29 11/16/24 12:37 13.7 MLS/HR Insulin Human Regular (humuLIN R 100 UNIT/ML 3ML) INSULIN SLIDING SCAL... ACHS SQ 11/16/24 16:30 12/16/24 16:29 Lactulose (Constulose 20gm/ 30ml Udcup) 20 gm BID PRN PO CONSTIPATION 11/16/24 14:30 12/16/24 14:29 Magnesium Sulfate 50 ml @ 0 mls/hr PROTOCOL PRN IV low mag level 11/16/24 14:30 12/16/24 14:29 11/17/24 05:21 25 MLS/HR Metoprolol Tartrate (loprESSOR) 12.5 mg BID PO 11/16/24 21:00 11/16/24 14:36 DC Metoprolol Tartrate (loprESSOR) 12.5 mg ONCE PO 11/16/24 15:00 11/16/24 14:55 DC Metoprolol Tartrate (loprESSOR) 25 mg BID PO 11/16/24 21:00 12/16/24 20:59 11/16/24 20:08 25 MG Nitroglycerin (Nitrostat) 0.4 mg AD PRN SL CHEST PAIN 11/16/24 15:00 12/16/24 14:59 Ondansetron HCl (zoFRAN 4MG INJ) 4 mg Q6H PRN IVP NAUSEA/VOMITING 11/16/24 14:00 12/16/24 13:59 Potassium Chloride 100 ml @ 100 mls/hr AD PRN IV POTASSIUM PROTOCOL 11/16/24 14:30 12/16/24 14:29 Potassium Chloride (K-Dur/Klor-Con 20meq) 20 meq AD PRN PO POTASSIUM PROTOCOL 11/16/24 14:30 12/16/24 14:29 Potassium Chloride (KCl 10% Elixir 20meq/15ml) 20 meq AD PRN PO POTASSIUM PROTOCOL 11/16/24 14:30 12/16/24 14:29 Sodium Chloride 500 ml @ 0 mls/hr Q0M IV 11/16/24 14:30 12/16/24 14:29 DIAGNOSTICS / RADIOLOGY: [ ] Left Heart Cath-Truong PROCEDURE: 1. Right common femoral arterial sheath placement. 2. Selective coronary angiogram. 3. Left heart catheterization. 4. Left ventriculogram. 5. Left subclavian arteriogram 6. Conscious sedation INDICATIONS: Non STEMI Post infarct angina DESCRIPTION OF PROCEDURE: The patient was brought to the catheterization suite and prepped and draped in sterile fashion. An IV was started, if not already in place and both groins were exposed for arterial access. 1% lidocaine was used for local anesthesia and then a micropuncture kit was used to gain access and once free-flowing blood was seen, modified Seldinger technique was utilized to place a 6 Thai sheath into the right common femoral artery. Next, preformed JL4 and JR4 Catheters w ere then used to selectively engage the [place] coronary vessels and multiple hand contrast injections were performed in different views to define the coronary anatomy. The JR4 catheter was then used to selectively engage the left subclavian artery and a contrast injection was performed to define patency of left internal mammary artery. Next, a 6 Thai angled pigtail catheter was then used across aortic valve pressure measurements were obtained and then a left ventriculogram was performed in the 30 DASH position. Next pullback method was performed. At end of case a sheath shot was done and then closure of arteriotomy site was performed with the use of a Mynx system and no complications occurred. FINDINGS: It should be noted that all the vessels are noted to be severely calcified on fluoroscopy alone involving the left main LAD left circumflex and RCA. The left main artery bifurcates into the LAD and left circumflex is severely calcified and has 30-50% stenosis noted throughout its course. The proximal LAD is occluded 100% but is filling with significant [id number] collaterals from the RCA with filling of the entirety of the LAD noted and there was a 90% apical LAD stenosis present upon retrograde filling. The left circumflex artery has an ostial stenosis of approximately 70% before it gives rise to 2 small obtuse marginal branch vessels. The ongoing left circumflex does give rise to a moderate sized obtuse marginal branch 3. Which is subtotaled in its proximal segment before it bifurcates distally. The ongoing interventricular circumflex vessel has an 85% stenosis distally. The right coronary artery has luminal irregularities noted throughout the body of the RCA before it gives rise to the RPDA with an ostial 85-90% stenosis and the RPL which has a 95-98% stenosis noted in its mid segment. The left subclavian artery is patent as is the left internal mammary artery. Ejection fraction is noted to be 65%. There was no evidence of aortic stenosis or mitral regurgitation. RECOMMENDATIONS: 1. CT surgery consultation for surgical revascularization consideration 2. Optimize goal-directed medical therapy as blood pressure tolerates. Three. Echocardiography to be performed 4. Anticoagulation with heparin ASSESSMENT: Non-STEMI post infarct angina POA s/p left heart cath. S/p Left heart cath 3 vessel disease: Unstable angina POA HTN uncontrolled POA KHURRAM on Chronic ARF POA UTI gram negative Klebsiella Pneumoniae POA DM Type II: Hyperglycemia POA Chronic problems; anxiety/depression HLD PLAN: Admit: PCCU condition: Stable Status: Full code Heparin drip as per protocol continues Consultants cardiology's s/p Heart cath, CT surgery appreciate input given findings of left heart catheterization patient is not a good surgical candidate per Dr. Arguello continue with dual therapy: plavix. asa A.cs. protocol aspirin, statin and beta-edgard Antibiotics: zosyn 3 375 gm IV every 8 hrs Test: Echo noted Labs cbc, cmp, mag+ in a.m. Replace electrolytes as needed as per protocol to keep potassium above 4.0 magnesium 2.0. Home medications pending to be reviewed by RN nurse. PRN: MEDICATIONS Tylenol 650 mg po every 4 hrs for fever zofran 4 mg IV every 6 hrs for n/v Hydralazine 5 mg IV every 4 hrs systolic pressure > 160 bowel regiment: lactulose 20 gm PO BID PRN constipation Pain management: None Supportive measures: DVT ppx, GI ppx all questions answered Supervising MD: c/d This document was generated in part using voice recognition software, occasional wrong word or sound alike substitutions may have occurred due to the inherent limitations of voice recognition software. Read the chart carefully and recognize using context, where the substitutions have occurred. Although every effort was made to edit the content, trimming assembler and typing errors may occur ATTESTATION BY PHYSICIAN I have seen and examined the patient. I reviewed the documentation, medical decision making, and treatment plan as noted by the mid-level provider above. I agree with the findings and plan of care. Luciana Meneses MD, ELIZABETH NP Nov 17, 2024 08:45
[2024-11-17] MEDS: cloPIDOgrel 75MG TAB PO SCH (08:46)
[2024-11-17] MEDS: PoTASSium chloRIDE 20MEQ ER 20 MEQ ERTAB PO PRN (08:46)
[2024-11-17] MEDS: ASPIRIN 81MG CHEW TAB PO SCH (08:46)
--- NOTE | 2024-11-17 12:00 | NUR ---
[address] Arguello, patient will not be having surgery today, Dr. Arguello aware of patient in room 204. 1055 As per Beba Grove RN, no surgery scheduled for patient today.
--- NOTE | 2024-11-17 12:15 | PN ---
[facility] CARDIOLOGY PROGRESS NOTE Date Patient Seen: Nov 17, 2024 Time of Visit: 12:05 Interval History: This is a 78-year-old [place] female with a past medical history of hypertension, hyperlipidemia, type 2 diabetes mellitus, depression and a prior abnormal stress test in 2014 demonstrating [address] depressions inferiorly, managed medically and has had normal LV systolic function with an LVEF of 60-65% by prior 2D echocardiogram March 29, 2022 who presented to the emergency department with a one-week history of stuttering anginal symptoms described as heat like sensation starting in her thighs traveling upwards accompanied by dyspnea. She has noted a decline in her physical activity reporting she was too tired to do any of her usual aerobic activities that she would engaging 3 times per week in the past. On the morning of 11/16/2024, her symptoms described above became worse in intensity without provoking factors or alleviating factors. In the emergency department, she was found to have evidence of a non ST segment elevation TX with lateral ST depressions on her EKG and initial high sensitivity cardiac troponin of 2600 and was admitted for a non ST segment elevation TX. She underwent a cardiac catheterization on 11/16/2024 demonstrating multivessel coronary artery disease with all vessels noted to be severely calcified. CT surgery consultation has been requested. She has offered no complaints of chest pain or shortness of breath overnight. A 2D echocardiogram is being done today. She continues on IV heparin drip. No complicating arrhythmias overnight with telemetry demonstrating sinus bradycardia to sinus rhythm with a heart rate of 54-73 beats per minute. Physical Examination: GENERAL: No acute distress. HEAD: Normal with no signs of head trauma. EYES: PERRLA, EOMI, conjunctiva and sclera normal. NECK: Supple without JVD. There is no tenderness, lymphadenopathy, or masses. No thyromegaly. Normal carotid upstrokes without bruits. LUNGS: Clear breath sounds bilaterally. No wheezes, or rhonchi. HEART: Normal rate and rhythm. Normal S1 and S2 without murmurs, gallop or rub. VASC: Peripheral pulses +2 bilaterally. EXT: No clubbing, cyanosis or edema. NEURO: Awake, alert, and oriented x3. No focal neurological deficits noted. Laboratory: Hematology Labs: Test 11/17/24 04:18 Range/Units White Blood Count 9.3 4.8-10.8 K/uL Red Blood Count 3.74 L 4.00-5.50 MIL/uL Hemoglobin 11.1 L 12.0-16.0 g/dL Hematocrit 34.0 L 36-48 % Mean Corpuscular Volume 90.9 79-99 fL Mean Corpuscular Hemoglobin 29.7 27.0-33.0 pg Mean Corpuscular Hemoglobin Concent 32.6 32.0-36.0 g/dL Red Cell Distribution Width 13.2 11.0-15.5 % Platelet Count 249 130-400 K/uL Mean Platelet Volume 11.4 H 7.5-10.5 fL Immature Granulocyte % (Auto) 0.2 0-1 % Neutrophils (%) (Auto) 67.4 40.0-77.0 % Lymphocytes (%) (Auto) 23.0 21.0-51.0 % Monocytes (%) (Auto) 8.1 3.0-13.0 % Eosinophils (%) (Auto) 0.9 0.0-8.0 % Basophils (%) (Auto) 0.4 0.0-5.0 % Neutrophils # (Auto) 6.3 1.8-7.7 K/uL Lymphocytes # (Auto) 2.2 1.0-4.8 K/uL Monocytes # (Auto) 0.8 0.1-1.0 K/uL Eosinophils # (Auto) 0.08 0.00-0.70 K/uL Basophils # (Auto) 0.04 0.00-0.20 K/uL Absolute Immature Granulocyte (auto 0.02 0-1 K/uL Nucleated Red Blood Cells 0.0 0.0-0.19 % Chemistry Labs: Test 11/17/24 11:39 11/17/24 04:18 11/16/24 18:06 11/16/24 14:20 Range/Units Whole Blood Glucose 181 H 70-110 MG/DL Sodium Level 141 136-145 mmol/L Potassium Level 3.8 3.5-5.1 mmol/L Chloride Level 104 101-111 mmol/L Carbon Dioxide Level 30 21-32 mmol/L Blood Urea Nitrogen 26 H 7-18 mg/dL Creatinine 1.3 H 0.5-1.0 mg/dL Glomerular Filtration Rate Calc 42 >90 mL/min Random Glucose 165 H 70-105 mg/dL Total Calcium 8.8 8.5-10.1 mg/dL Magnesium Level 1.70 L 1.80-2.40 mg/dL Total Bilirubin 0.4 0.2-1.0 mg/dL Aspartate Amino Transf (AST/SGOT) 10 10-37 U/L Alanine Aminotransferase (ALT/SGPT) 16 12-78 U/L Alkaline Phosphatase 72 50-136 U/L Total Protein 6.7 6.0-8.3 g/dL Albumin 2.9 L 3.5-5.0 g/dL Troponin I High Sensitivity 1495 *H 4-50 ng/L Triglycerides Level 129 30-200 mg/dL Cholesterol Level 179 <200 mg/dL LDL Cholesterol 92 0-99 mg/dL HDL Cholesterol 71 35-85 mg/dL Thyroid Stimulating Hormone (TSH) 1.79 0.36-3.74 uIU/mL Test 11/16/24 10:55 Range/Units B-Type Natriuretic Peptide 108 H 0-100 pg/mL Coagulation Labs: Test 11/17/24 07:47 11/16/24 18:06 Range/Units Activated Partial Thromboplast Time > 139.0 *H 26.3-35.5 SEC Prothrombin Time 10.9 9.6-11.6 SEC Prothromb Time International Ratio 0.97 0.85-1.15 Diagnostics / Radiology: Chest x-ray 11/16/2024 demonstrated borderline cardiomegaly but no CHF 2D echocardiogram is pending Impression and Plan: Non ST segment elevation TX with initial troponin of 2662 and in a falling pattern: Multivessel coronary artery disease by cardiac catheterization 11/16/2024 with calcified vessels noted throughout: -continue dual antiplatelet therapy, statin therapy and beta-edgard therapy -CT surgery consult is pending -await follow-up 2D echocardiogram Urinary tract infection: Management per primary team Hypertension: -continue current management Hyperlipidemia: -lipid panel 11/16/2024 demonstrated a total cholesterol of 179, triglycerides 129, HDL 71 and LDL of 92, target LDL of 55 in this diabetic patient -continue atorvastatin 40 mg p.o. daily Comorbidities: Type 2 diabetes mellitus Depression Normal LV systolic function by prior 2D echocardiogram March 2022 with an LVEF of 60-65% PHYSICIAN ATTESTATION OF PHYSICIAN TENSION WORKER DOCUMENTATION: I attest that I was physically present for the mayers portions of the service and evaluated the patient with the Physician Marketing Analytics Manager, and I reviewed and discussed the case with the Physician Marketing Analytics Manager and made modifications to the Physician Marketing Analytics Manager's findings and plans of care as documented above FAMILIA PATTERSON Nov 17, 2024 12:15 JANEY LUZ MD Nov 17, 2024 16:54
--- NOTE | 2024-11-17 16:22 | HMCSR ---
APPROVED REPORT EXAM: Two-dimensional and M-mode echocardiogram with Doppler and color Doppler. INDICATION ICD: I21.4 Non ST-elevation DC 2D Dimensions RVDd3.6 cmLVEF(%)64.4 (>50%)LVED Vol(simp.)73.8 mL IVSd0.8 (0.7-1.1cm)FS(%)35 %LVES Vol(simp.)29.1 mL LVDd4.3 (3.8-5.6cm)LA (2D)3.5 (1.6-4.0cm)LVEF(%, simp.)61 % PWd1.0 (0.7-1.1cm)Ao Root(2D)3.3 (2.0-3.7cm)LA ESV INDEX (4CH)21.80 mL/m2 IVSs1.1 cmLVOT diam1.9 (1.8-2.4cm)LA ESV INDEX (2CH)33.50 mL/m2 LVDs2.8 (2.5-4.0cm)LA ESV INDEX (BP)30.00 mL/m2 PWs1.6 cm Deformation Strain Apical 421.0 % Apical 217.0 % Apical 312.0 % Global Dbeaks12.0 % M-Mode Dimensions EPSS1.0 cm LA (MM)3.5 (1.6-4.0cm) Ao Root(MM)3.3 (2.0-3.7cm) Aortic Valve AoV VTI0.3 mAo Mean GR4.0 mmHgLVOT VTI0.21 m ROBERT (VMAX)1.8 cm2AVA (VTI) 1.8 cm2 Mitral Valve MR Max PG39 mmHgP 1/2 T75 ms MVA (PHT)2.9 cm2 TDI Medial E' Peak V6.30 cm/sLateral E' Peak V8.20 cm/s Left Ventricle The left ventricle is normal size. GLS -17%. There is normal LV segmental wall motion. There is monica l left ventricular wall thickness. LVEF is 60-65%. The left ventricular diastolic function is normal. Right Ventricle The right ventricle is normal size. The right ventricular systolic function is normal. Atria The left atrium size is normal. The right atrium size is normal. Aortic Valve The aortic valve is normal in structure. No aortic regurgitation is present. There is no aortic valvu lar stenosis. Mitral Valve The mitral valve is normal in structure. There is no mitral valve regurgitation noted. There is no mi tral valve stenosis. Tricuspid Valve The tricuspid valve is normal in structure. There is no tricuspid valve regurgitation noted. Pulmonic Valve The pulmonary valve is normal in structure. There is no pulmonic valvular regurgitation. Great Vessels The aortic root is normal in size. The IVC is normal in size and collapses >50% with inspiration. Pericardium There is no pericardial effusion. Conclusion LVEF is 60-65%. GLS -17%. There is normal LV segmental wall motion. The aortic root is normal in size. There is no pericardial effusion.
--- NOTE | 2024-11-17 17:26 | PN ---
SUBJECTIVE: The patient is a 78-year-old female with diabetes mellitus, hypertension, hyperlipidemia, who presented to the hospital with chest pain and weakness. The patient ruled in for a [id number] TN with a troponin of 1495. The patient underwent a heart catheterization yesterday. Her left ventriculogram showed a normal ejection fraction; however, the patient had very diffuse three-system coronary artery disease with an occluded left anterior descending artery. Cardiovascular Surgery was consulted for possible coronary artery bypass grafting. OBJECTIVE: VITAL SIGNS: Reveal temperature 97.9, pulse is 59, respirations 18, blood pressure 128/65, and oxygen saturations are 98%. HEENT: Reveals to be normocephalic, atraumatic. Extraocular movements intact. HEART: S1, S2 and slightly bradycardic. LUNGS: Unlabored at rest. ABDOMEN: Reveals mild to moderate obesity with positive bowel sounds. LABORATORY DATA: Her white cell count is 9300, hemoglobin is 11.1. BUN is 26, creatinine is 1.3. Her chest x-ray shows relatively clear lung liz. ASSESSMENT AND PLAN: Three-system coronary artery disease. The patient has an occluded left anterior descending artery that fills via right to left collaterals. In and of itself is a calcified vessel and has a stenosis in the distal one-third segment. The vessel is also small and appears to be a poor target for coronary artery bypass grafting with the left internal mammary artery. I do not think the patient would make for a good surgical candidate for this reason. TID: [id number] RECEIPT: [id number]
--- NOTE | 2024-11-17 18:42 | NUR ---
DCP/INITIAL ASSESSMENT Patient lives with spouse. She has no home health but does have PHC with [facility] 24 1/2 hours. DME: BPM, wheelchair. Patient is able to complete ADLs and drives. PCP is Dr. Kath Mi. Pharmacy is [facility] in [place]. Patient has no issues with having stable usp to live in or transportation. She and spouse have lived in their home for some time. No concerns voiced regarding not having enough food in the home. No safety concerns voiced regarding returning home. DCP is home. Addendum: 11/17/24 at 1844 by LEO MILLER Amended: Links added.
[2024-11-18] VITALS (8 sets, daily range): BP systolic 107–143; BP diastolic 54–74; PULSE 50–67; RESP 16–18; TEMP 97.9–98.9; O2SAT 95
[2024-11-18 04:13] LABS: BASOPHILS # (AUTO) 0.04 K/uL (0.00-0.20); BASOPHILS % (AUTO) 0.5 % (0.0-5.0); EOSINOPHILS % (AUTO) 1.3 % (0.0-8.0); HEMATOCRIT 33.2 % (36-48); IMMATURE GRANULOCYTE ABSOLUTE 0.03 K/uL (0-1); LYMPHOCYTES % (AUTO) 25.9 % (21.0-51.0); MEAN CORPUSCULAR HEMOGLOBIN 29.1 pg (27.0-33.0); MEAN CORPUSCULAR HGB CONC 31.9 g/dL (32.0-36.0); MEAN CORPUSCULAR VOLUME 91.2 fL (79-99); MONOCYTES # (AUTO) 0.7 K/uL (0.1-1.0); MONOCYTES % (AUTO) 8.4 % (3.0-13.0); NEUTROPHILS % (AUTO) 63.5 % (40.0-77.0); PLATELET COUNT (AUTO) 218 K/uL (130-400); RED BLOOD CELL COUNT(AUTO) 3.64 MIL/uL (4.00-5.50); RED CELL DISTRIBUTION WIDTH 12.9 % (11.0-15.5); WHITE BLOOD COUNT (AUTO) 7.8 K/uL (4.8-10.8)
[2024-11-18 04:43] LABS: BILIRUBIN,TOTAL 0.4 mg/dL (0.2-1.0); CREATININE 1.2 mg/dL (0.5-1.0); POTASSIUM 3.7 mmol/L (3.5-5.1); TOTAL PROTEIN, SERUM 6.6 g/dL (6.0-8.3)
[2024-11-18] MEDS ORDERED: 0.9%NACL 50ML IV SCH (09:00)
[2024-11-18] MEDS: ZOSYN 3.375GM +NS 50ML IVPB SCH (10:22)
[2024-11-18] MEDS ORDERED: SITA1TAB6 PO (10:35)
[2024-11-18] MEDS ORDERED: ATOR40TA71 PO (10:35)
[2024-11-18] MEDS ORDERED: AEC81 PO (10:35)
[2024-11-18] MEDS ORDERED: AMLO-257 PO (10:35)
[2024-11-18] MEDS ORDERED: GLIM2TAB30 PO (10:35)
[2024-11-18] MEDS ORDERED: OLME-12 PO (10:35)
[2024-11-18] MEDS ORDERED: CARV6.25 PO (10:35)
--- NOTE | 2024-11-18 11:13 | PN ---
[facility] CARDIOLOGY PROGRESS NOTE Date Patient Seen: Nov 18, 2024 Time of Visit: 11:06 Interval History: This is a 78-year-old Latin-[place] female with a past medical history of hypertension, hyperlipidemia, type 2 diabetes mellitus, depression and a prior abnormal stress test in 2014 demonstrating [address] depressions inferiorly, managed medically and has had normal LV systolic function with an LVEF of 60-65% by prior 2D echocardiogram March 29, 2022 who presented to the emergency department with a one-week history of stuttering anginal symptoms described as heat like sensation starting in her thighs traveling upwards accompanied by dyspnea. She has noted a decline in her physical activity reporting she was too tired to do any of her usual aerobic activities that she would engaging 3 times per week in the past. On the morning of 11/16/2024, her symptoms described above became worse in intensity without provoking factors or alleviating factors. In the emergency department, she was found to have evidence of a non ST segment elevation OK with lateral ST depressions on her EKG and initial high sensitivity cardiac troponin of 2600 and was admitted for a non ST segment elevation OK. She underwent a cardiac catheterization on 11/16/2024 demonstrating multivessel coronary artery disease with all vessels noted to be severely calcified. She was evaluated by Dr. Miguel Smalls and felt she was a poor candidate for coronary artery bypass. A 2nd opinion was offered and she will await 2nd opinion from Dr. Mikal Zaragoza in a.m. 2D echocardiogram 11/17/2024 demonstrated normal LVEF of 60-65%. Stable overnight without chest pain or other symptoms to report. Physical Examination: GENERAL: No acute distress. HEAD: Normal with no signs of head trauma. EYES: PERRLA, EOMI, conjunctiva and sclera normal. NECK: Supple without JVD. There is no tenderness, lymphadenopathy, or masses. No thyromegaly. Normal carotid upstrokes without bruits. LUNGS: Clear breath sounds bilaterally. No wheezes, or rhonchi. HEART: Normal rate and rhythm. Normal S1 and S2 without murmurs, gallop or rub. VASC: Peripheral pulses +2 bilaterally. The right groin is free of any bruising or hematoma. EXT: No clubbing, cyanosis or edema. NEURO: Awake, alert, and oriented x3. No focal neurological deficits noted. Laboratory: Hematology Labs: Test 11/18/24 03:54 Range/Units White Blood Count 7.8 4.8-10.8 K/uL Red Blood Count 3.64 L 4.00-5.50 MIL/uL Hemoglobin 10.6 L 12.0-16.0 g/dL Hematocrit 33.2 L 36-48 % Mean Corpuscular Volume 91.2 79-99 fL Mean Corpuscular Hemoglobin 29.1 27.0-33.0 pg Mean Corpuscular Hemoglobin Concent 31.9 L 32.0-36.0 g/dL Red Cell Distribution Width 12.9 11.0-15.5 % Platelet Count 218 130-400 K/uL Mean Platelet Volume 11.1 H 7.5-10.5 fL Immature Granulocyte % (Auto) 0.4 0-1 % Neutrophils (%) (Auto) 63.5 40.0-77.0 % Lymphocytes (%) (Auto) 25.9 21.0-51.0 % Monocytes (%) (Auto) 8.4 3.0-13.0 % Eosinophils (%) (Auto) 1.3 0.0-8.0 % Basophils (%) (Auto) 0.5 0.0-5.0 % Neutrophils # (Auto) 5.0 1.8-7.7 K/uL Lymphocytes # (Auto) 2.0 1.0-4.8 K/uL Monocytes # (Auto) 0.7 0.1-1.0 K/uL Eosinophils # (Auto) 0.10 0.00-0.70 K/uL Basophils # (Auto) 0.04 0.00-0.20 K/uL Absolute Immature Granulocyte (auto 0.03 0-1 K/uL Nucleated Red Blood Cells 0.0 0.0-0.19 % Chemistry Labs: Test 11/18/24 05:44 11/18/24 03:54 11/16/24 18:06 11/16/24 14:20 Range/Units Whole Blood Glucose 104 70-110 MG/DL Sodium Level 142 136-145 mmol/L Potassium Level 3.7 3.5-5.1 mmol/L Chloride Level 105 101-111 mmol/L Carbon Dioxide Level 31 21-32 mmol/L Blood Urea Nitrogen 21 H 7-18 mg/dL Creatinine 1.2 H 0.5-1.0 mg/dL Glomerular Filtration Rate Calc 47 >90 mL/min Random Glucose 101 70-105 mg/dL Total Calcium 8.9 8.5-10.1 mg/dL Magnesium Level 2.00 1.80-2.40 mg/dL Total Bilirubin 0.4 0.2-1.0 mg/dL Aspartate Amino Transf (AST/SGOT) 8 L 10-37 U/L Alanine Aminotransferase (ALT/SGPT) 15 12-78 U/L Alkaline Phosphatase 71 50-136 U/L Total Protein 6.6 6.0-8.3 g/dL Albumin 3.0 L 3.5-5.0 g/dL Troponin I High Sensitivity 1495 *H 4-50 ng/L Triglycerides Level 129 30-200 mg/dL Cholesterol Level 179 <200 mg/dL LDL Cholesterol 92 0-99 mg/dL HDL Cholesterol 71 35-85 mg/dL Thyroid Stimulating Hormone (TSH) 1.79 0.36-3.74 uIU/mL Coagulation Labs: Test 11/18/24 03:54 11/16/24 18:06 Range/Units Activated Partial Thromboplast Time 67.3 H 26.3-35.5 SEC Prothrombin Time 10.9 9.6-11.6 SEC Prothromb Time International Ratio 0.97 0.85-1.15 Diagnostics / Radiology: Chest x-ray 11/16/2024 demonstrated borderline cardiomegaly but no CHF 2D echocardiogram 11/17/2024: LVEF is 60-65%. There is normal LV segmental wall motion. The aortic root is normal in size. There is no pericardial effusion. Impression and Plan: Non ST segment elevation OK with initial troponin of 2662 and in a falling pattern: Multivessel coronary artery disease by cardiac catheterization 11/16/2024 with calcified vessels noted throughout: Normal LV systolic function with an LVEF of 60-65% by 2D echocardiogram 11/17/2024: -continue dual antiplatelet therapy, statin therapy and beta-edgard therapy -poor candidate for surgical revascularization per Dr. Miguel Arguello and she will await 2nd opinion from Dr. Zaragoza in a.m. -discontinue IV heparin -add isosorbide mononitrate ER 60 mg p.o. daily to her medical regimen -out of bed and activity as tolerated Urinary tract infection: Management per primary team Hypertension: -continue current management Hyperlipidemia: -lipid panel 11/16/2024 demonstrated a total cholesterol of 179, triglycerides 129, HDL 71 and LDL of 92, target LDL of 55 in this diabetic patient -continue atorvastatin 40 mg p.o. daily Comorbidities: Type 2 diabetes mellitus Depression PHYSICIAN ATTESTATION OF PHYSICIAN HUMAN GEOGRAPHY FACULTY MEMBER DOCUMENTATION: I attest that I was physically present for the mayers portions of the service and evaluated the patient with the Physician Pharmaceutical Botanist, and I reviewed and discussed the case with the Physician Pharmaceutical Botanist and made modifications to the Physician Pharmaceutical Botanist's findings and plans of care as documented above FAMILIA PATTERSON Nov 18, 2024 11:13 JANEY LUZ MD Nov 18, 2024 15:07
[2024-11-18] MEDS: ISOSORBIDE MONO 60MG SR TAB PO SCH (12:37)
--- NOTE | 2024-11-18 13:47 | PN ---
[facility] PROGRESS NOTE Date of Service: Nov 18, 2024 Time of Service: 13:45 SUBJECTIVE: [ ] admission date: 11/16/24 PCP: Hiwot Stockton DO chief complaints: weakness, chest tightness This is a 78-year-old female with a significant medical history of di abetes type 2, hypertension, hyperlipidemia presents in ER with chief complaints of weakness, and chest discomfort. Onset ongoing for one-week. Symptoms come and go duration about 30 minutes. Chest pain location :midsternal radiates to mid back associated with GI symptoms nausea and vomiting. Severity moderate. Denies dizziness, palpitation, shortness for breath with minimal exertion, chills and fever. Patient reports the last few three days symptoms have been constantly and decided to come to ER for further evaluation and treatment. ER workup troponin elevated non-STEMI, urinalysis positive for UTI. 11/17/24 Status post left heart catheterization. CT surgery consulted for surgical revascularization will followed recommendations. 11/18/23 patient is seen and examined patient is fully awake alert oriented x3 no shortness a breath chest pain or palpitations overnight. was seen by CV surgeon. Three-vessel disease. the patient and family is requesting a second opinion. REVIEW OF SYSTEMS a 14 point ROS obtained all relevant positives were documented otherwise ROS negative. PHYSICAL EXAM GENERAL APPEARANCE: The patient is awake, alert, and oriented, in no acute cardiopulmonary distress. NEUROLOGICAL: Cranial nerves II-XII grossly intact. Motor is 5/5 in bilateral upper and lower extremities proximal to distal. No sensory deficits. HEENT: Face is symmetric. Pupils are equal and reactive. Extraocular movements are intact. NECK: Supple. No JVD. No thyromegaly. No submental, submandibular, pre- /postauricular, occipital or supraclavicular lymphadenopathy. CHEST: Normal chest expansion. No Telemetry. LUNGS: Absence of any rales, rhonchi or any wheezing. CARDIOVASCULAR: Regular. S1 and S2 normal. No appreciable rubs, murmurs or gallops. ABDOMEN: Soft, nontender, and nondistended. There is no rebound, voluntary guarding, or rigidity. : Deferred. No Enriquez. EXTREMITIES: Non-edematous and not cyanotic. No clubbing. Good capillary refill. SKIN: No skin breakdown. Vital Signs (last 8hr) Date Time Temp Pulse Resp B/P (MAP) Pulse Ox O2 Delivery O2 Flow Rate FiO2 11/18/24 11:05 97.9 50 18 143/59 100 Room Air 11/18/24 09:20 95 Room Air* 0 21 11/18/24 07:10 98.8 67 18 141/74 99 Room Air LABS: Laboratory: Test 11/18/24 11:08 11/18/24 03:54 11/16/24 18:06 11/16/24 14:20 Range/Units Whole Blood Glucose 173 #H 70-110 MG/DL White Blood Count 7.8 4.8-10.8 K/uL Red Blood Count 3.64 L 4.00-5.50 MIL/uL Hemoglobin 10.6 L 12.0-16.0 g/dL Hematocrit 33.2 L 36-48 % Mean Corpuscular Volume 91.2 79-99 fL Mean Corpuscular Hemoglobin 29.1 27.0-33.0 pg Mean Corpuscular Hemoglobin Concent 31.9 L 32.0-36.0 g/dL Red Cell Distribution Width 12.9 11.0-15.5 % Platelet Count 218 130-400 K/uL Mean Platelet Volume 11.1 H 7.5-10.5 fL Immature Granulocyte % (Auto) 0.4 0-1 % Neutrophils (%) (Auto) 63.5 40.0-77.0 % Lymphocytes (%) (Auto) 25.9 21.0-51.0 % Monocytes (%) (Auto) 8.4 3.0-13.0 % Eosinophils (%) (Auto) 1.3 0.0-8.0 % Basophils (%) (Auto) 0.5 0.0-5.0 % Neutrophils # (Auto) 5.0 1.8-7.7 K/uL Lymphocytes # (Auto) 2.0 1.0-4.8 K/uL Monocytes # (Auto) 0.7 0.1-1.0 K/uL Eosinophils # (Auto) 0.10 0.00-0.70 K/uL Basophils # (Auto) 0.04 0.00-0.20 K/uL Absolute Immature Granulocyte (auto 0.03 0-1 K/uL Nucleated Red Blood Cells 0.0 0.0-0.19 % Activated Partial Thromboplast Time 67.3 H 26.3-35.5 SEC Sodium Level 142 136-145 mmol/L Potassium Level 3.7 3.5-5.1 mmol/L Chloride Level 105 101-111 mmol/L Carbon Dioxide Level 31 21-32 mmol/L Blood Urea Nitrogen 21 H 7-18 mg/dL Creatinine 1.2 H 0.5-1.0 mg/dL Glomerular Filtration Rate Calc 47 >90 mL/min Random Glucose 101 70-105 mg/dL Total Calcium 8.9 8.5-10.1 mg/dL Magnesium Level 2.00 1.80-2.40 mg/dL Total Bilirubin 0.4 0.2-1.0 mg/dL Aspartate Amino Transf (AST/SGOT) 8 L 10-37 U/L Alanine Aminotransferase (ALT/SGPT) 15 12-78 U/L Alkaline Phosphatase 71 50-136 U/L Total Protein 6.6 6.0-8.3 g/dL Albumin 3.0 L 3.5-5.0 g/dL Prothrombin Time 10.9 9.6-11.6 SEC Prothromb Time International Ratio 0.97 0.85-1.15 Troponin I High Sensitivity 1495 *H 4-50 ng/L Triglycerides Level 129 30-200 mg/dL Cholesterol Level 179 <200 mg/dL LDL Cholesterol 92 0-99 mg/dL HDL Cholesterol 71 35-85 mg/dL Thyroid Stimulating Hormone (TSH) 1.79 0.36-3.74 uIU/mL Current Medications Medications (Trade) Dose Ordered Sig/Loyda Route PRN Reason Start Time Stop Time Status Last Admin Dose Admin Acetaminophen (TYLenol 325MG TAB) 650 mg Q4H PRN PO TEMPERATURE GREATER THAN 101.5 11/16/24 14:00 12/16/24 13:59 Aspirin (Aspirin 81mg Chew Tab) 81 mg DAILY PO 11/17/24 09:00 12/17/24 08:59 11/18/24 09:24 81 MG Atorvastatin Calcium (LIPItor 20MG) 20 mg HS PO 11/16/24 21:00 11/16/24 14:43 DC Atorvastatin Calcium (LIPItor 40MG) 40 mg HS PO 11/16/24 21:00 12/16/24 20:59 11/17/24 20:55 40 MG Ceftriaxone Sodium (ROCEphine 1G INJ) 1 gm Q24H IVPB 11/16/24 14:00 11/18/24 08:51 DC 11/17/24 13:23 1 GM Clopidogrel Bisulfate (plaVIX 300MG TAB) 300 mg ONCE PO 11/16/24 14:30 11/16/24 14:42 DC Clopidogrel Bisulfate (plaVIX 75MG) 75 mg DAILY PO 11/17/24 09:00 12/17/24 08:59 11/18/24 09:24 75 MG Famotidine (Pepcid 20mg Tab) 20 mg Q24H PO 11/16/24 21:00 12/16/24 20:59 11/17/24 20:55 20 MG Heparin Sodium (Porcine) (HEParin 5,000 UNIT VIAL) *calculation based on ACTUAL B... AD PRN IV HEPARIN PROTOCOL 11/16/24 13:30 11/18/24 11:05 DC 11/16/24 12:40 6,000 UNIT Heparin Sodium/ Dextrose 250 ml @ 0 mls/hr Q6H IV 11/16/24 13:30 11/18/24 11:05 DC 11/17/24 12:31 8.85 MLS/HR Insulin Human Regular (humuLIN R 100 UNIT/ML 3ML) INSULIN SLIDING SCAL... ACHS SQ 11/16/24 16:30 12/16/24 16:29 11/17/24 21:15 4 UNIT Isosorbide Mononitrate (Imdur 60mg Sr) 60 mg DAILY PO 11/18/24 11:30 12/18/24 11:29 11/18/24 12:37 60 MG Lactulose (Constulose 20gm/ 30ml Udcup) 20 gm BID PRN PO CONSTIPATION 11/16/24 14:30 12/16/24 14:29 Magnesium Sulfate 50 ml @ 0 mls/hr PROTOCOL PRN IV low mag level 11/16/24 14:30 12/16/24 14:29 11/17/24 05:21 25 MLS/HR Metoprolol Tartrate (loprESSOR) 12.5 mg BID PO 11/16/24 21:00 11/16/24 14:36 DC Metoprolol Tartrate (loprESSOR) 12.5 mg ONCE PO 11/16/24 15:00 11/16/24 14:55 DC Metoprolol Tartrate (loprESSOR) 25 mg BID PO 11/16/24 21:00 12/16/24 20:59 11/18/24 09:24 25 MG Nitroglycerin (Nitrostat) 0.4 mg AD PRN SL CHEST PAIN 11/16/24 15:00 12/16/24 14:59 Ondansetron HCl (zoFRAN 4MG INJ) 4 mg Q6H PRN IVP NAUSEA/VOMITING 11/16/24 14:00 12/16/24 13:59 Piperacillin Sod/ Tazobactam Sod (Zosyn 3.375gm+NS 50ml) 3.375 gm Q8H IVPB 11/18/24 09:00 11/28/24 08:59 11/18/24 10:22 3.375 GM Potassium Chloride 100 ml @ 100 mls/hr AD PRN IV POTASSIUM PROTOCOL 11/16/24 14:30 12/16/24 14:29 Potassium Chloride (K-Dur/Klor-Con 20meq) 20 meq AD PRN PO POTASSIUM PROTOCOL 11/16/24 14:30 12/16/24 14:29 11/18/24 06:34 20 MEQ Potassium Chloride (KCl 10% Elixir 20meq/15ml) 20 meq AD PRN PO POTASSIUM PROTOCOL 11/16/24 14:30 12/16/24 14:29 Sodium Chloride 500 ml @ 0 mls/hr Q0M IV 11/16/24 14:30 12/16/24 14:29 Sodium Chloride (NS 50ml) 50 ml AD IV 11/18/24 09:00 12/18/24 08:59 DIAGNOSTICS / RADIOLOGY: [ ] ASSESSMENT: Non-STEMI post infarct angina POA s/p left heart cath. S/p Left heart cath 3 vessel disease: Unstable angina POA HTN uncontrolled POA KHURRAM on Chronic ARF POA UTI gram negative Klebsiella Pneumoniae POA DM Type II: Hyperglycemia POA Chronic problems; anxiety/depression HLD PLAN: Admit: PCCU condition: Stable Status: Full code Heparin drip as per protocol continues Consultants cardiology's s/p Heart cath, CT surgery appreciate input given findings of left heart catheterization patient is not a good surgical candidate per Dr. Arguello 2nd opinion: Dr Zaragoza pending continue with dual therapy: Plavix. asa A.cs. protocol aspirin, statin and beta-edgard Antibiotics: zosyn 3 375 gm IV every 8 hrs Test: Echo noted Labs cbc, cmp, mag+ in a.m. Replace electrolytes as needed as per protocol to keep potassium above 4.0 magnesium 2.0. Home medications pending to be reviewed by RN nurse. PRN: MEDICATIONS Tylenol 650 mg po every 4 hrs for fever zofran 4 mg IV every 6 hrs for n/v Hydralazine 5 mg IV every 4 hrs systolic pressure > 160 bowel regiment: lactulose 20 gm PO BID PRN constipation Pain management: None Supportive measures: DVT ppx, GI ppx all questions answered Supervising MD: c/d This document was generated in part using voice recognition software, occasional wrong word or sound alike substitutions may have occurred due to the inherent limitations of voice recognition software. Read the chart carefully and recognize using context, where the substitutions have occurred. Although every effort was made to edit the content, leadite worker and typing errors may occur ATTESTATION BY PHYSICIAN I have seen and examined the patient. I reviewed the documentation, medical decision making, and treatment plan as noted by the mid-level provider above. I agree with the findings and plan of care. Luciana Meneses MD, ELIZABETH NP Nov 18, 2024 13:47
[2024-11-19] VITALS (8 sets, daily range): BP systolic 99–135; BP diastolic 54–65; PULSE 54–81; RESP 16–21; TEMP 98–98.8; O2SAT 95–98
[2024-11-19 03:43] LABS: BASOPHILS # (AUTO) 0.05 K/uL (0.00-0.20); BASOPHILS % (AUTO) 0.5 % (0.0-5.0); EOSINOPHILS # (AUTO) 0.15 K/uL (0.00-0.70); EOSINOPHILS % (AUTO) 1.6 % (0.0-8.0); HEMATOCRIT 29.1 % (36-48); IMMATURE GRANULOCYTE ABSOLUTE 0.02 K/uL (0-1); LYMPHOCYTES # (AUTO) 2.6 K/uL (1.0-4.8); LYMPHOCYTES % (AUTO) 27.2 % (21.0-51.0); MEAN CORPUSCULAR HEMOGLOBIN 29.5 pg (27.0-33.0); MEAN CORPUSCULAR HGB CONC 32.3 g/dL (32.0-36.0); MEAN CORPUSCULAR VOLUME 91.2 fL (79-99); MONOCYTES # (AUTO) 0.9 K/uL (0.1-1.0); MONOCYTES % (AUTO) 9.7 % (3.0-13.0); NEUTROPHILS # (AUTO) 5.9 K/uL (1.8-7.7); NEUTROPHILS % (AUTO) 60.8 % (40.0-77.0); PLATELET COUNT (AUTO) 204 K/uL (130-400); RED BLOOD CELL COUNT(AUTO) 3.19 MIL/uL (4.00-5.50); RED CELL DISTRIBUTION WIDTH 13.1 % (11.0-15.5); WHITE BLOOD COUNT (AUTO) 9.6 K/uL (4.8-10.8)
[2024-11-19 04:03] LABS: ALBUMIN 2.8 g/dL (3.5-5.0); BILIRUBIN,TOTAL 0.4 mg/dL (0.2-1.0); CREATININE 1.3 mg/dL (0.5-1.0); MAGNESIUM 1.8 mg/dL (1.80-2.40); POTASSIUM 3.9 mmol/L (3.5-5.1); TOTAL PROTEIN, SERUM 6.3 g/dL (6.0-8.3)
--- NOTE | 2024-11-19 11:20 | PN ---
[facility] PROGRESS NOTE Date of Service: Nov 19, 2024 Time of Service: 11:08 SUBJECTIVE: [ ] admission date: 11/16/24 PCP: Hiwot Stockton DO chief complaints: weakness, chest tightness This is a 78-year-old female with a significant medical history of d iabetes type 2, hypertension, hyperlipidemia presents in ER with chief complaints of weakness, and chest discomfort. Onset ongoing for one-week. Symptoms come and go duration about 30 minutes. Chest pain location :midsternal radiates to mid back associated with GI symptoms nausea and vomiting. Severity moderate. Denies dizziness, palpitation, shortness for breath with minimal exertion, chills and fever. Patient reports the last few three days symptoms have been constantly and decided to come to ER for further evaluation and treatment. ER workup troponin elevated non-STEMI, urinalysis positive for UTI. 11/19 patient was evaluated in the room this morning, she is status post left heart catheterization with three system coronary artery disease, patient has an occluded left anterior descending artery that fills via [id number] collaterals. Patient also was started with calcified vessel and has stenosis in the distal 1/3 segment. The vessel is also small and appears to be poor target for coronary artery bypass grafting with a left internal mammary artery per Dr. Arguello patient would not make for a good surgical candidate for this reason. I spoke to the patient and family at bedside who who are requesting 2nd opinion. We will await for further recommendations from CTS surgeon. Options were given to the patient to follow up as an outpatient with Dr. Choudhary we will await. REVIEW OF SYSTEMS a 14 point ROS obtained all relevant positives were documented otherwise ROS negative. PHYSICAL EXAM GENERAL APPEARANCE: The patient is awake, alert, and oriented, in no acute cardiopulmonary distress. NEUROLOGICAL: Cranial nerves II-XII grossly intact. Motor is 5/5 in bilateral upper and lower extremities proximal to distal. No sensory deficits. HEENT: Face is symmetric. Pupils are equal and reactive. Extraocular movements are intact. NECK: Supple. No JVD. No thyromegaly. No submental, submandibular, pre- /postauricular, occipital or supraclavicular lymphadenopathy. CHEST: Normal chest expansion. No Telemetry. LUNGS: Absence of any rales, rhonchi or any wheezing. CARDIOVASCULAR: Regular. S1 and S2 normal. No appreciable rubs, murmurs or gallops. ABDOMEN: Soft, nontender, and nondistended. There is no rebound, voluntary guarding, or rigidity. : Deferred. No Enriquez. EXTREMITIES: Non-edematous and not cyanotic. No clubbing. Good capillary ref ill. SKIN: No skin breakdown. Vital Signs (last 8hr) Date Time Temp Pulse Resp B/P (MAP) Pulse Ox O2 Delivery O2 Flow Rate FiO2 11/19/24 08:52 98.8 59 18 111/55 97 Room Air 11/19/24 03:23 98.4 57 16 118/59 99 Room Air LABS: Laboratory: Test 11/19/24 05:50 11/19/24 03:28 11/18/24 19:50 11/18/24 03:54 Range/Units Whole Blood Glucose 86 # 70-110 MG/DL White Blood Count 9.6 4.8-10.8 K/uL Red Blood Count 3.19 L 4.00-5.50 MIL/uL Hemoglobin 9.4 L 12.0-16.0 g/dL Hematocrit 29.1 L 36-48 % Mean Corpuscular Volume 91.2 79-99 fL Mean Corpuscular Hemoglobin 29.5 27.0-33.0 pg Mean Corpuscular Hemoglobin Concent 32.3 32.0-36.0 g/dL Red Cell Distribution Width 13.1 11.0-15.5 % Platelet Count 204 130-400 K/uL Mean Platelet Volume 11.1 H 7.5-10.5 fL Immature Granulocyte % (Auto) 0.2 0-1 % Neutrophils (%) (Auto) 60.8 40.0-77.0 % Lymphocytes (%) (Auto) 27.2 21.0-51.0 % Monocytes (%) (Auto) 9.7 3.0-13.0 % Eosinophils (%) (Auto) 1.6 0.0-8.0 % Basophils (%) (Auto) 0.5 0.0-5.0 % Neutrophils # (Auto) 5.9 1.8-7.7 K/uL Lymphocytes # (Auto) 2.6 1.0-4.8 K/uL Monocytes # (Auto) 0.9 0.1-1.0 K/uL Eosinophils # (Auto) 0.15 0.00-0.70 K/uL Basophils # (Auto) 0.05 0.00-0.20 K/uL Absolute Immature Granulocyte (auto 0.02 0-1 K/uL Nucleated Red Blood Cells 0.0 0.0-0.19 % Sodium Level 144 136-145 mmol/L Potassium Level 3.9 3.5-5.1 mmol/L Chloride Level 107 101-111 mmol/L Carbon Dioxide Level 30 21-32 mmol/L Blood Urea Nitrogen 24 H 7-18 mg/dL Creatinine 1.3 H 0.5-1.0 mg/dL Glomerular Filtration Rate Calc 42 >90 mL/min Random Glucose 76 70-105 mg/dL Total Calcium 8.7 8.5-10.1 mg/dL Magnesium Level 1.80 1.80-2.40 mg/dL Total Bilirubin 0.4 0.2-1.0 mg/dL Aspartate Amino Transf (AST/SGOT) 8 L 10-37 U/L Alanine Aminotransferase (ALT/SGPT) 15 12-78 U/L Alkaline Phosphatase 69 50-136 U/L Total Protein 6.3 6.0-8.3 g/dL Albumin 2.8 L 3.5-5.0 g/dL Bedside Glucose Comment Notified Nurse Activated Partial Thromboplast Time 67.3 H 26.3-35.5 SEC Current Medications Medications (Trade) Dose Ordered Sig/Loyda Route PRN Reason Start Time Stop Time Status Last Admin Dose Admin Acetaminophen (TYLenol 325MG TAB) 650 mg Q4H PRN PO TEMPERATURE GREATER THAN 101.5 11/16/24 14:00 12/16/24 13:59 Aspirin (Aspirin 81mg Chew Tab) 81 mg DAILY PO 11/17/24 09:00 12/17/24 08:59 11/19/24 10:15 81 MG Atorvastatin Calcium (LIPItor 20MG) 20 mg HS PO 11/16/24 21:00 11/16/24 14:43 DC Atorvastatin Calcium (LIPItor 40MG) 40 mg HS PO 11/16/24 21:00 12/16/24 20:59 11/18/24 21:01 40 MG Ceftriaxone Sodium (ROCEphine 1G INJ) 1 gm Q24H IVPB 11/16/24 14:00 11/18/24 08:51 DC 11/17/24 13:23 1 GM Clopidogrel Bisulfate (plaVIX 300MG TAB) 300 mg ONCE PO 11/16/24 14:30 11/16/24 14:42 DC Clopidogrel Bisulfate (plaVIX 75MG) 75 mg DAILY PO 11/17/24 09:00 12/17/24 08:59 11/19/24 10:15 75 MG Famotidine (Pepcid 20mg Tab) 20 mg Q24H PO 11/16/24 21:00 12/16/24 20:59 11/18/24 21:08 20 MG Heparin Sodium (Porcine) (HEParin 5,000 UNIT VIAL) *calculation based on ACTUAL B... AD PRN IV HEPARIN PROTOCOL 11/16/24 13:30 11/18/24 11:05 DC 11/16/24 12:40 6,000 UNIT Heparin Sodium/ Dextrose 250 ml @ 0 mls/hr Q6H IV 11/16/24 13:30 11/18/24 11:05 DC 11/17/24 12:31 8.85 MLS/HR Insulin Human Regular (humuLIN R 100 UNIT/ML 3ML) INSULIN SLIDING SCAL... ACHS SQ 11/16/24 16:30 12/16/24 16:29 11/18/24 20:55 10 UNIT Isosorbide Mononitrate (Imdur 60mg Sr) 60 mg DAILY PO 11/18/24 11:30 12/18/24 11:29 11/19/24 10:15 60 MG Lactulose (Constulose 20gm/ 30ml Udcup) 20 gm BID PRN PO CONSTIPATION 11/16/24 14:30 12/16/24 14:29 Magnesium Sulfate 50 ml @ 0 mls/hr PROTOCOL PRN IV low mag level 11/16/24 14:30 12/16/24 14:29 11/17/24 05:21 25 MLS/HR Metoprolol Tartrate (loprESSOR) 12.5 mg BID PO 11/16/24 21:00 11/16/24 14:36 DC Metoprolol Tartrate (loprESSOR) 12.5 mg ONCE PO 11/16/24 15:00 11/16/24 14:55 DC Metoprolol Tartrate (loprESSOR) 25 mg BID PO 11/16/24 21:00 12/16/24 20:59 11/19/24 10:15 25 MG Nitroglycerin (Nitrostat) 0.4 mg AD PRN SL CHEST PAIN 11/16/24 15:00 12/16/24 14:59 Ondansetron HCl (zoFRAN 4MG INJ) 4 mg Q6H PRN IVP NAUSEA/VOMITING 11/16/24 14:00 12/16/24 13:59 Piperacillin Sod/ Tazobactam Sod (Zosyn 3.375gm+NS 50ml) 3.375 gm Q8H IVPB 11/18/24 09:00 11/28/24 08:59 11/19/24 10:43 3.375 GM Potassium Chloride 100 ml @ 100 mls/hr AD PRN IV POTASSIUM PROTOCOL 11/16/24 14:30 12/16/24 14:29 Potassium Chloride (K-Dur/Klor-Con 20meq) 20 meq AD PRN PO POTASSIUM PROTOCOL 11/16/24 14:30 12/16/24 14:29 11/18/24 06:34 20 MEQ Potassium Chloride (KCl 10% Elixir 20meq/15ml) 20 meq AD PRN PO POTASSIUM PROTOCOL 11/16/24 14:30 12/16/24 14:29 Sodium Chloride 500 ml @ 0 mls/hr Q0M IV 11/16/24 14:30 12/16/24 14:29 Sodium Chloride (NS 50ml) 50 ml AD IV 11/18/24 09:00 11/19/24 07:22 DC DIAGNOSTICS / RADIOLOGY: [ ] ASSESSMENT: Non-STEMI post infarct angina POA s/p left heart cath. S/p Left heart cath 3 vessel disease: Unstable angina POA HTN uncontrolled POA KHURRAM on Chronic ARF POA UTI gram negative Klebsiella Pneumoniae POA DM Type II: Hyperglycemia POA Chronic problems; anxiety/depression HLD PLAN: Admit: PCCU condition: Stable Status: Full code Heparin drip has been discontinued Consultants cardiology's s/p Heart cath, CT surgery appreciate input given philip west of left heart catheterization patient is not a good surgical candidate per Dr. Arguello 2nd opinion: Dr Choudhary continue with dual therapy: Plavix. asa A.cs. protocol aspirin, statin and beta-edgard, and isosorbide mononitrate ER 60 mg p.o. daily Antibiotics: zosyn 3 375 gm IV every 8 hrs for Klebsiella pneumoniae on urine, we can transitioned to p.o. once discharged Test: Echo noted Labs cbc, cmp, mag+ in a.m. Replace electrolytes as needed as per protocol to keep potassium above 4.0 magnesium 2.0. Home medications pending to be reviewed by RN nurse. PRN: MEDICATIONS Tylenol 650 mg po every 4 hrs for fever Zofran 4 mg IV every 6 hrs for n/v Hydralazine 5 mg IV every 4 hrs systolic pressure > 160 bowel regiment: lactulose 20 gm PO BID PRN constipation Pain management: None Supportive measures: DVT ppx, GI ppx all questions answered Supervising MD: c/d This document was generated in part using voice recognition software, occasional wrong word or sound alike substitutions may have occurred due to the inherent limitations of voice recognition software. Read the chart carefully and recognize using context, where the substitutions have occurred. Although every effort was made to edit the content, bus greaser and typing errors may occur ATTESTATION BY PHYSICIAN I have seen and examined the patient. I reviewed the documentation, medical decision making, and treatment plan as noted by the mid-level provider above. I agree with the findings and plan of care. Luciana Meneses MD, [facility] Nov 19, 2024 11:20
--- NOTE | 2024-11-19 17:20 | PN ---
[facility] CARDIOLOGY PROGRESS NOTE Date Patient Seen: Nov 19, 2024 Time of Visit: 17:18 Problem List: NSTEMI Interval History: Patient seen with multiple family members at bedside She is chest pain free. Denies shortness of breath. No acute issues per primary RN. Physical Examination: GENERAL: [No acute distress.] HEAD: [Normal with no signs of head trauma.] NECK: [Normal carotid upstrokes without bruits.] LUNGS: [Clear breath sounds bilaterally. No wheezes, or rhonchi.] HEART: [Normal rate and rhythm. Normal S1 and S2 without murmurs, gallop or rub.] VASC: [Peripheral pulses +2 bilaterally.] EXT: [No cyanosis or edema.] SKIN: [No rashes or lesions noted.] NEURO: [Awake, alert, and oriented x3. No focal sensory or strength deficits noted.] Laboratory: [ ] Hematology Labs: Test 11/19/24 03:28 Range/Units White Blood Count 9.6 4.8-10.8 K/uL Red Blood Count 3.19 L 4.00-5.50 MIL/uL Hemoglobin 9.4 L 12.0-16.0 g/dL Hematocrit 29.1 L 36-48 % Mean Corpuscular Volume 91.2 79-99 fL Mean Corpuscular Hemoglobin 29.5 27.0-33.0 pg Mean Corpuscular Hemoglobin Concent 32.3 32.0-36.0 g/dL Red Cell Distribution Width 13.1 11.0-15.5 % Platelet Count 204 130-400 K/uL Mean Platelet Volume 11.1 H 7.5-10.5 fL Immature Granulocyte % (Auto) 0.2 0-1 % Neutrophils (%) (Auto) 60.8 40.0-77.0 % Lymphocytes (%) (Auto) 27.2 21.0-51.0 % Monocytes (%) (Auto) 9.7 3.0-13.0 % Eosinophils (%) (Auto) 1.6 0.0-8.0 % Basophils (%) (Auto) 0.5 0.0-5.0 % Neutrophils # (Auto) 5.9 1.8-7.7 K/uL Lymphocytes # (Auto) 2.6 1.0-4.8 K/uL Monocytes # (Auto) 0.9 0.1-1.0 K/uL Eosinophils # (Auto) 0.15 0.00-0.70 K/uL Basophils # (Auto) 0.05 0.00-0.20 K/uL Absolute Immature Granulocyte (auto 0.02 0-1 K/uL Nucleated Red Blood Cells 0.0 0.0-0.19 % Chemistry Labs: Test 11/19/24 12:10 11/19/24 03:28 11/18/24 19:50 Range/Units Whole Blood Glucose 135 #H 70-110 MG/DL Sodium Level 144 136-145 mmol/L Potassium Level 3.9 3.5-5.1 mmol/L Chloride Level 107 101-111 mmol/L Carbon Dioxide Level 30 21-32 mmol/L Blood Urea Nitrogen 24 H 7-18 mg/dL Creatinine 1.3 H 0.5-1.0 mg/dL Glomerular Filtration Rate Calc 42 >90 mL/min Random Glucose 76 70-105 mg/dL Total Calcium 8.7 8.5-10.1 mg/dL Magnesium Level 1.80 1.80-2.40 mg/dL Total Bilirubin 0.4 0.2-1.0 mg/dL Aspartate Amino Transf (AST/SGOT) 8 L 10-37 U/L Alanine Aminotransferase (ALT/SGPT) 15 12-78 U/L Alkaline Phosphatase 69 50-136 U/L Total Protein 6.3 6.0-8.3 g/dL Albumin 2.8 L 3.5-5.0 g/dL Bedside Glucose Comment Notified Nurse Coagulation Labs: Test 11/18/24 03:54 Range/Units Activated Partial Thromboplast Time 67.3 H 26.3-35.5 SEC Impression and Plan: * Heq-FP-dypokngxt myocardial infarction. * Known coronary artery disease, previously asymptomatic. * Abnormal exercise treadmill test in [address] depressions. * March 2023 echo, EF 60%-65%. * Type 2 diabetes, controlled. * Hypertension. * Dyslipidemia. * Depression. Continue with DAPT (aspirin, clopidogrel) Continue statin therapy Continue antianginal imdur Continue beta edgard metoprolol which she appears to be tolerating. Awaiting second opinion for consideration of CABG MIESHA LEPE DO Nov 19, 2024 17:20
--- NOTE | 2024-11-19 17:30 | NUR ---
DR FIELDS HERE SPOKE WITH PT AND FAMILY ORDERED VITALITY TEST
[2024-11-20] VITALS (7 sets, daily range): BP systolic 119–152; BP diastolic 58–69; PULSE 52–65; RESP 18–20; TEMP 97.9–98.6; O2SAT 99
--- NOTE | 2024-11-20 01:54 | CONS ---
REFERRING PHYSICIAN: Dr. Truong. CONSULTING PHYSICIAN: Mikal Zaragoza MD REASON FOR CONSULTATION: Coronary artery disease, total LAD. HISTORY: This patient presented with a non-ST myocardial infarction. Cardiac catheterization demonstrates total LAD with some collateralization. Echocardiogram demonstrates normal function in the anterior wall and there are no ST changes and no Q-waves on III, IV and V with a nice R-wave progression. The right coronary artery has ostial lesion in the PDA, which is relatively small vessel and distal lesion on the posterolateral ventricular branch, after which the base of the vessel was too small to bypass. The circumflex system was an ostial lesion which was calcified and two small branches. The larger is the third oblique marginal. I have reviewed the data and I have discussed with Dr. Truong. I have also discussed with the patient and look at the imaging and I have explained to the family that the PDA could potentially be bypassed that is a small target. The oblique marginal is subtotal and has small target and the RAM could be anastomosed to the LAD, which was chronically occluded and perhaps there could be some survival benefit by doing this and collateralizing the rest of the heart, but I am not certain. this to the family and given the option to proceed with medical versus surgical therapy. TID: [id number] RECEIPT: [id number]
--- NOTE | 2024-11-20 07:16 | NUR ---
RAD NUCLEAR MEDICINE SPOKE TO NURSE PRUDENCE INFORMED HIM THE RADIOPHARM[facility]Y DOES NOT SUPPLY THALLIUM DOSES, HE WILL CONTACT ME WITHIN THE HOUR TO SEE IF THE MD WANTS TO CHANGE EXAM TO ANUP CARDIOLITE.
--- NOTE | 2024-11-20 09:53 | PN ---
[facility] PROGRESS NOTE Date of Service: Nov 20, 2024 Time of Service: 09:47 SUBJECTIVE: [ ] admission date: 11/16/24 PCP: Hiwot Stockton DO chief complaints: weakness, chest tightness This is a 78-year-old female with a significant medical history of d iabetes type 2, hypertension, hyperlipidemia presents in ER with chief complaints of weakness, and chest discomfort. Onset ongoing for one-week. Symptoms come and go duration about 30 minutes. Chest pain location :midsternal radiates to mid back associated with GI symptoms nausea and vomiting. Severity moderate. Denies dizziness, palpitation, shortness for breath with minimal exertion, chills and fever. Patient reports the last few three days symptoms have been constantly and decided to come to ER for further evaluation and treatment. ER workup troponin elevated non-STEMI, urinalysis positive for UTI. 11/19 patient was evaluated in the room this morning, she is status post left heart catheterization with three system coronary artery disease, patient has an occluded left anterior descending artery that fills via [id number] collaterals. Patient also was started with calcified vessel and has stenosis in the distal 1/3 segment. The vessel is also small and appears to be poor target for coronary artery bypass grafting with a left internal mammary artery per Dr. Arguello patient would not make for a good surgical candidate for this reason. I spoke to the patient and family at bedside who who are requesting 2nd opinion. We will await for further recommendations from CTS surgeon. 11/20 patient was evaluated with daughter at bedside, Dr. Zaragoza has seen the patient last night and recommended nuclear med viability to assess artery. We will await for the results. So far patient has no acute events reported overnight. Patient is currently NPO. REVIEW OF SYSTEMS a 14 point ROS obtained all relevant positives were documented otherwise ROS negative. PHYSICAL EXAM GENERAL APPEARANCE: The patient is awake, alert, and oriented, in no acute cardiopulmonary distress. NEUROLOGICAL: Cranial nerves II-XII grossly intact. Motor is 5/5 in bilateral upper and lower extremities proximal to distal. No sensory deficits. HEENT: Face is symmetric. Pupils are equal and reactive. Extraocular movements are intact. NECK: Supple. No JVD. No thyromegaly. No submental, submandibular, pre- /postauricular, occipital or supraclavicular lymphadenopathy. CHEST: Normal chest expansion. No Telemetry. LUNGS: Absence of any rales, rhonchi or any wheezing. CARDIOVASCULAR: Regular. S1 and S2 normal. No appreciable rubs, murmurs or gallops. ABDOMEN: Soft, nontender, and nondistended. There is no rebound, voluntary guarding, or rigidity. : Deferred. No Enriquez. EXTREMITIES: Non-edematous and not cyanotic. No clubbing. Good capillary refill. SKIN: No skin breakdown. Vital Signs (last 8hr) Date Time Temp Pulse Resp B/P (MAP) Pulse Ox O2 Delivery O2 Flow Rate FiO2 11/20/24 08:35 99 Room Air* 0 21 11/20/24 08:16 98.1 53 18 135/65 100 Room Air 11/20/24 04:04 97.9 52 20 119/61 99 Room Air LABS: Laboratory: Test 11/20/24 06:45 11/19/24 19:54 11/19/24 03:28 Range/Units Whole Blood Glucose 94 # 70-110 MG/DL Bedside Glucose Comment Notified Nurse White Blood Count 9.6 4.8-10.8 K/uL Red Blood Count 3.19 L 4.00-5.50 MIL/uL Hemoglobin 9.4 L 12.0-16.0 g/dL Hematocrit 29.1 L 36-48 % Mean Corpuscular Volume 91.2 79-99 fL Mean Corpuscular Hemoglobin 29.5 27.0-33.0 pg Mean Corpuscular Hemoglobin Concent 32.3 32.0-36.0 g/dL Red Cell Distribution Width 13.1 11.0-15.5 % Platelet Count 204 130-400 K/uL Mean Platelet Volume 11.1 H 7.5-10.5 fL Immature Granulocyte % (Auto) 0.2 0-1 % Neutrophils (%) (Auto) 60.8 40.0-77.0 % Lymphocytes (%) (Auto) 27.2 21.0-51.0 % Monocytes (%) (Auto) 9.7 3.0-13.0 % Eosinophils (%) (Auto) 1.6 0.0-8.0 % Basophils (%) (Auto) 0.5 0.0-5.0 % Neutrophils # (Auto) 5.9 1.8-7.7 K/uL Lymphocytes # (Auto) 2.6 1.0-4.8 K/uL Monocytes # (Auto) 0.9 0.1-1.0 K/uL Eosinophils # (Auto) 0.15 0.00-0.70 K/uL Basophils # (Auto) 0.05 0.00-0.20 K/uL Absolute Immature Granulocyte (auto 0.02 0-1 K/uL Nucleated Red Blood Cells 0.0 0.0-0.19 % Sodium Level 144 136-145 mmol/L Potassium Level 3.9 3.5-5.1 mmol/L Chloride Level 107 101-111 mmol/L Carbon Dioxide Level 30 21-32 mmol/L Blood Urea Nitrogen 24 H 7-18 mg/dL Creatinine 1.3 H 0.5-1.0 mg/dL Glomerular Filtration Rate Calc 42 >90 mL/min Random Glucose 76 70-105 mg/dL Total Calcium 8.7 8.5-10.1 mg/dL Magnesium Level 1.80 1.80-2.40 mg/dL Total Bilirubin 0.4 0.2-1.0 mg/dL Aspartate Amino Transf (AST/SGOT) 8 L 10-37 U/L Alanine Aminotransferase (ALT/SGPT) 15 12-78 U/L Alkaline Phosphatase 69 50-136 U/L Total Protein 6.3 6.0-8.3 g/dL Albumin 2.8 L 3.5-5.0 g/dL Current Medications Medications (Trade) Dose Ordered Sig/Loyda Route PRN Reason Start Time Stop Time Status Last Admin Dose Admin Acetaminophen (TYLenol 325MG TAB) 650 mg Q4H PRN PO TEMPERATURE GREATER THAN 101.5 11/16/24 14:00 12/16/24 13:59 Aspirin (Aspirin 81mg Chew Tab) 81 mg DAILY PO 11/17/24 09:00 12/17/24 08:59 11/19/24 10:15 81 MG Atorvastatin Calcium (LIPItor 20MG) 20 mg HS PO 11/16/24 21:00 11/16/24 14:43 DC Atorvastatin Calcium (LIPItor 40MG) 40 mg HS PO 11/16/24 21:00 12/16/24 20:59 11/19/24 21:39 40 MG Ceftriaxone Sodium (ROCEphine 1G INJ) 1 gm Q24H IVPB 11/16/24 14:00 11/18/24 08:51 DC 11/17/24 13:23 1 GM Clopidogrel Bisulfate (plaVIX 300MG TAB) 300 mg ONCE PO 11/16/24 14:30 11/16/24 14:42 DC Clopidogrel Bisulfate (plaVIX 75MG) 75 mg DAILY PO 11/17/24 09:00 12/17/24 08:59 11/19/24 10:15 75 MG Famotidine (Pepcid 20mg Tab) 20 mg Q24H PO 11/16/24 21:00 12/16/24 20:59 11/19/24 21:39 20 MG Heparin Sodium (Porcine) (HEParin 5,000 UNIT VIAL) *calculation based on ACTUAL B... AD PRN IV HEPARIN PROTOCOL 11/16/24 13:30 11/18/24 11:05 DC 11/16/24 12:40 6,000 UNIT Heparin Sodium/ Dextrose 250 ml @ 0 mls/hr Q6H IV 11/16/24 13:30 11/18/24 11:05 DC 11/17/24 12:31 8.85 MLS/HR Insulin Human Regular (humuLIN R 100 UNIT/ML 3ML) INSULIN SLIDING SCAL... ACHS SQ 11/16/24 16:30 12/16/24 16:29 11/19/24 21:03 8 UNIT Isosorbide Mononitrate (Imdur 60mg Sr) 60 mg DAILY PO 11/18/24 11:30 12/18/24 11:29 11/19/24 10:15 60 MG Lactulose (Constulose 20gm/ 30ml Udcup) 20 gm BID PRN PO CONSTIPATION 11/16/24 14:30 12/16/24 14:29 Magnesium Sulfate 50 ml @ 0 mls/hr PROTOCOL PRN IV low mag level 11/16/24 14:30 12/16/24 14:29 11/17/24 05:21 25 MLS/HR Metoprolol Tartrate (loprESSOR) 12.5 mg BID PO 11/16/24 21:00 11/16/24 14:36 DC Metoprolol Tartrate (loprESSOR) 12.5 mg ONCE PO 11/16/24 15:00 11/16/24 14:55 DC Metoprolol Tartrate (loprESSOR) 25 mg BID PO 11/16/24 21:00 12/16/24 20:59 11/19/24 21:39 25 MG Nitroglycerin (Nitrostat) 0.4 mg AD PRN SL CHEST PAIN 11/16/24 15:00 12/16/24 14:59 Ondansetron HCl (zoFRAN 4MG INJ) 4 mg Q6H PRN IVP NAUSEA/VOMITING 11/16/24 14:00 12/16/24 13:59 Piperacillin Sod/ Tazobactam Sod (Zosyn 3.375gm+NS 50ml) 3.375 gm Q8H IVPB 11/18/24 09:00 11/28/24 08:59 11/20/24 01:53 3.375 GM Potassium Chloride 100 ml @ 100 mls/hr AD PRN IV POTASSIUM PROTOCOL 11/16/24 14:30 12/16/24 14:29 Potassium Chloride (K-Dur/Klor-Con 20meq) 20 meq AD PRN PO POTASSIUM PROTOCOL 11/16/24 14:30 12/16/24 14:29 11/18/24 06:34 20 MEQ Potassium Chloride (KCl 10% Elixir 20meq/15ml) 20 meq AD PRN PO POTASSIUM PROTOCOL 11/16/24 14:30 12/16/24 14:29 Sodium Chloride 500 ml @ 0 mls/hr Q0M IV 11/16/24 14:30 12/16/24 14:29 Sodium Chloride (NS 50ml) 50 ml AD IV 11/18/24 09:00 11/19/24 07:22 DC DIAGNOSTICS / RADIOLOGY: [ ] ASSESSMENT: Non-STEMI post infarct angina POA s/p left heart cath. S/p Left heart cath 3 vessel disease: Unstable angina POA HTN uncontrolled POA KHURRAM on Chronic ARF POA UTI gram negative Klebsiella Pneumoniae POA DM Type II: Hyperglycemia POA Hyperlipidemia anxiety/depression PLAN: Admit: PCCU condition: Stable Status: Full code Heparin drip has been discontinued Consultants cardiology's s/p Heart cath, CT surgery appreciate input given findings of left heart catheterization patient is not a good surgical candidate per Dr. Arguello 2nd opinion: Dr Zaragoza, recommended for nuclear med viability 24 hours scan- to assess artery continue with dual therapy: Plavix. asa A.cs. protocol aspirin, statin and beta-edgard, and isosorbide mononitrate ER 60 mg p.o. daily Antibiotics: zosyn 3 375 gm IV every 8 hrs for Klebsiella pneumoniae on urine, we can transitioned to p.o. once discharged Test: Echo noted Labs cbc, cmp, mag+ in a.m. Replace electrolytes as needed as per protocol to keep potassium above 4.0 magnesium 2.0. Home medications pending to be reviewed by RN nurse. PRN: MEDICATIONS Tylenol 650 mg po every 4 hrs for fever Zofran 4 mg IV every 6 hrs for n/v Hydralazine 5 mg IV every 4 hrs systolic pressure > 160 bowel regiment: lactulose 20 gm PO BID PRN constipation Pain management: None Supportive measures: DVT ppx, GI ppx all questions answered Supervising MD: c/d This document was generated in part using voice recognition software, occasional wrong word or sound alike substitutions may have occurred due to the inherent limitations of voice recognition software. Read the chart carefully and recognize using context, where the substitutions have occurred. Although every effort was made to edit the content, power mule operator and typing errors may occur ATTESTATION BY PHYSICIAN I have seen and examined the patient. I reviewed the documentation, medical decision making, and treatment plan as noted by the mid-level provider above. I agree with the findings and plan of care. Luciana Meneses MD, [facility] Nov 20, 2024 09:53
--- NOTE | 2024-11-20 10:50 | PN ---
[facility] CARDIOLOGY PROGRESS NOTE Date Patient Seen: Nov 20, 2024 Time of Visit: 10:49 Problem List: NSTEMI Interval History: No acute events overnight per RN Patient NPO pending possible lexiscan stress today Physical Examination: GENERAL: [No acute distress.] HEAD: [Normal with no signs of head trauma.] NECK: [Normal carotid upstrokes without bruits.] LUNGS: [Clear breath sounds bilaterally. No wheezes, or rhonchi.] HEART: [Normal rate and rhythm. Normal S1 and S2 without murmurs, gallop or rub.] VASC: [Peripheral pulses +2 bilaterally.] EXT: [No cyanosis or edema.] SKIN: [No rashes or lesions noted.] NEURO: [Awake, alert, and oriented x3. No focal sensory or strength deficits noted.] Laboratory: [ ] Hematology Labs: Test 11/19/24 03:28 Range/Units White Blood Count 9.6 4.8-10.8 K/uL Red Blood Count 3.19 L 4.00-5.50 MIL/uL Hemoglobin 9.4 L 12.0-16.0 g/dL Hematocrit 29.1 L 36-48 % Mean Corpuscular Volume 91.2 79-99 fL Mean Corpuscular Hemoglobin 29.5 27.0-33.0 pg Mean Corpuscular Hemoglobin Concent 32.3 32.0-36.0 g/dL Red Cell Distribution Width 13.1 11.0-15.5 % Platelet Count 204 130-400 K/uL Mean Platelet Volume 11.1 H 7.5-10.5 fL Immature Granulocyte % (Auto) 0.2 0-1 % Neutrophils (%) (Auto) 60.8 40.0-77.0 % Lymphocytes (%) (Auto) 27.2 21.0-51.0 % Monocytes (%) (Auto) 9.7 3.0-13.0 % Eosinophils (%) (Auto) 1.6 0.0-8.0 % Basophils (%) (Auto) 0.5 0.0-5.0 % Neutrophils # (Auto) 5.9 1.8-7.7 K/uL Lymphocytes # (Auto) 2.6 1.0-4.8 K/uL Monocytes # (Auto) 0.9 0.1-1.0 K/uL Eosinophils # (Auto) 0.15 0.00-0.70 K/uL Basophils # (Auto) 0.05 0.00-0.20 K/uL Absolute Immature Granulocyte (auto 0.02 0-1 K/uL Nucleated Red Blood Cells 0.0 0.0-0.19 % Chemistry Labs: Test 11/20/24 06:45 11/19/24 19:54 11/19/24 03:28 Range/Units Whole Blood Glucose 94 # 70-110 MG/DL Bedside Glucose Comment Notified Nurse Sodium Level 144 136-145 mmol/L Potassium Level 3.9 3.5-5.1 mmol/L Chloride Level 107 101-111 mmol/L Carbon Dioxide Level 30 21-32 mmol/L Blood Urea Nitrogen 24 H 7-18 mg/dL Creatinine 1.3 H 0.5-1.0 mg/dL Glomerular Filtration Rate Calc 42 >90 mL/min Random Glucose 76 70-105 mg/dL Total Calcium 8.7 8.5-10.1 mg/dL Magnesium Level 1.80 1.80-2.40 mg/dL Total Bilirubin 0.4 0.2-1.0 mg/dL Aspartate Amino Transf (AST/SGOT) 8 L 10-37 U/L Alanine Aminotransferase (ALT/SGPT) 15 12-78 U/L Alkaline Phosphatase 69 50-136 U/L Total Protein 6.3 6.0-8.3 g/dL Albumin 2.8 L 3.5-5.0 g/dL Impression and Plan: * Dae-QH-miosrrmdn myocardial infarction. * Known coronary artery disease, previously asymptomatic. * Abnormal exercise treadmill test in 2014 with [address] depressions. * March 2023 echo, EF 60%-65%. * Type 2 diabetes, controlled. * Hypertension. * Dyslipidemia. * Depression. Patient stable from a cardiac standpoint Continue with DAPT (aspirin, clopidogrel) Continue statin therapy Continue antianginal imdur Continue beta edgard metoprolol which she appears to be tolerating. We will await the results of the cardiac perfusion study MIESHA LEPE DO Nov 20, 2024 10:50
[2024-11-20] MEDS ORDERED: REGADENOSON 0.4 MG/5 ML PF SYG IVP ONE (12:44)
--- NOTE | 2024-11-20 13:13 | CONS ---
REFERRING PHYSICIAN: Nikos Truong MD CONSULTING PHYSICIAN: Mikal Zaragoza MD REASON FOR CONSULTATION: Coronary artery disease and non-Q myocardial infarction. HISTORY: This is a 78-year-old lady who presents to the hospital with some chest pain. She rules in for non-Q myocardial infarction, underwent a cardiac catheterization that demonstrates chronic occlusion of the LAD with reconstitution via collaterals. She has got also circumflex system that consisted of 2 small branches and a subtotally occluded branch, which may be bypassable. The right coronary system consisted of a PDA that has an ostial obstruction and then it is a relatively mild to a small vessel, approximately 1.5 mm in size. The posterolateral ventricular branch was too small to bypass. I had the opportunity to review the films and discussed the case with Dr. Truong. We both agreed that perhaps placing the RAM to the LAD would improve survival of the patient, however, we both think that the majority of the symptoms may be coming from the posterolateral ventricular branch, which is too small to bypass. I have discussed this with the patient and family and have recommended to perform a Lexiscan to see if there is ischemia on the anterolateral wall in which case then RAM to the LAD and perhaps bypass in the PDA and the oblique marginal would be indicated. In the meantime, the patient is asymptomatic and has adequate collaterals and would like to continue medical therapy. Plan to see her in the office next week. TID: [id number] RECEIPT: [id number]
--- NOTE | 2024-11-20 14:33 | DS ---
Discharge Summary Hospital Course Summary: IS A 78-YEAR-OLD FEMALE WITH HISTORY OF HYPERTENSION, DYSLIPIDEMIA, TYPE 2 DIABETES,, DEPRESSION IN CAD. PATIENT PRESENTED TO THE ED WITH CHEST PAIN ASSOCIATED WITH SHORTNESS OF BREATHS. ON THE DAY OF ADMISSION, HER CHEST PAIN BECAME PROGRESSIVELY WORSE. SHE ALSO HAS UTI THAT WAS NOTED ON ADMISSION. [facility] IS BEING FOLLOWED BY [facility]. PATIENT WAS ADMITTED FOR FURTHER CARDIAC WORKUP, PATIENT HAD A LEFT HEART CATHETERIZATION DONE ON 11/16/[address] TRUONG FOR WHICH FINDINGS SHOWED "severely calcified on fluoroscopy alone involving the left main LAD left circumflex and RCA. The left main artery bifurcates into the LAD and left circumflex is severely calcified and has 30-50% stenosis noted throughout its course. The proximal LAD is occluded 100% but is filling with significant tadyl-sj-ytce collaterals from the RCA with filling of the entirety of the LAD noted and there was a 90% apical LAD stenosis present upon retrograde filling. The left circumflex artery has an ostial stenosis of approximately 70% before it gives rise to 2 small obtuse marginal branch vessels. The ongoing left circumflex does give rise to a moderate sized obtuse marginal branch 3. Which is subtotaled in its proximal segment before it bifurcates distally. The ongoing interventricular circumflex vessel has an 85% stenosis distally. The right coronary artery has luminal irregularities noted throughout the body of the RCA before it gives rise to the RPDA with an ostial 85-90% stenosis and the RPL which has a 95-98% stenosis noted in its mid segment. The left subclavian artery is patent as is the left internal mammary artery. Ejection fraction is noted to be 65%. There was no evidence of aortic stenosis or mitral regurgitation. " RECOMMENDATION IS CT SURGERY CONSULTATION FOR SURGICAL REVASCULARIZATION CONSIDERATION, OPTIMIZE GOAL DIRECTED MEDICAL THERAPY BLOOD PRESSURE TOLERATES, ANTICOAGULATION WITH HEPARIN. PATIENT WAS E VALUATED BY 1ST DR. PUENTES, WHO INITIALLY INDICATED THAT PATIENT IS NOT A SURGICAL CANDIDATE AND 2ND OPINION WAS NOTED BY DR. FIELDS. AT THIS POINT, DR. FIELDS REVIEWED THE FILMS AND DISCUSSED THE CASE WITH DR. TRUONG AND THEY BOTH AGREE THAT PLACING THE RAM TO THE LAD WITH IMPROVED SURVIVAL OF THE PATIENT HOWEVER THEY BOTH THINK THAT THE MAJORITY OF THE SYMPTOMS MAY BE COMING FROM THE POSTEROLATERAL VENTRICULAR BRANCH, WHICH IS TOO SMALL TO BYPASS. HE DISCUSSED WITH THE FAMILY INPATIENT THAT HIS RECOMMENDATION IS TO PERFORM A LEXISCAN TO SEE IF THERE IS ISCHEMIA ON THE ANTEROLATERAL WALL IN WHICH CASE THEN RAM TO THE LAD AND PERHAPS BYPASS IN THE PDA AND THE OBLIQUE MARGINAL WITH BE INDICATED. WE ARE PENDING ON THE LEXISCAN STRESS TEST, FOR THE MEANTIME SINCE PATIENT IS ASYMPTOMATIC AND HAS ADEQUATE COLLATERALS MEDICAL THERAPY IS RECOMMENDED. PATIENT WILL BE DISCHARGED TODAY ONCE THE LEXISCAN IS RESULTED AND CLEARANCE FROM CTS AND CARDIOLOGY HAS BEEN RECEIVED. THIS HAS BEEN DISCUSSED WITH THE PATIENT AND FAMILY AT BEDSIDE AND THEY VERBALIZED UNDERSTANDING. Roads Superintendent(s): Dr. Nikos Truong- marine scientist Dr. Fields- CTS Procedure(s): 11/16/24- Left Heart Cath-by Dr. Nikos Truong PROCEDURE: 1. Right common femoral arterial sheath placement. 2. Selective coronary angiogram. 3. Left heart catheterization. 4. Left ventriculogram. 5. Left subclavian arteriogram 6. Conscious sedation INDICATIONS: Non STEMI Post infarct angina Assessment/Plan: Discharge diagnoses: Non-STEMI post infarct angina POA s/p left heart cath- continue with the a DAPT- aspirin and Plavix, statin therapy, and antianginal Imdur with beta edgard S/p Left heart cath 3 vessel disease-surgical intervention still pending, at this time Lexiscan has been recommended by Cardiothoracic surgeon. Lexiscan is disease there is ischemia on anterolateral wall in which case can RAM to the LAD and perhaps bypass in the PDA and the oblique marginal with be indicated Unstable angina POA HTN uncontrolled POA KHURRAM on Chronic ARF POA UTI gram negative Klebsiella Pneumoniae POA DM Type II: Hyperglycemia POA Hyperlipidemia anxiety/depression Admitting diagnoses Non-STEMI post infarct angina POA s/p left heart cath. S/p Left heart cath 3 vessel disease: Unstable angina POA HTN uncontrolled POA KHURRAM on Chronic ARF POA UTI gram negative Klebsiella Pneumoniae POA DM Type II: Hyperglycemia POA Hyperlipidemia anxiety/depression PLAN: Admit: PCCU condition: Stable Status: Full code Heparin drip has been discontinued Consultants cardiology's s/p Heart cath, CT surgery appreciate input given findings of left heart catheterization patient is not a good surgical candidate per Dr. Puentes 2nd opinion: Dr Fields, recommended for nuclear med viability 24 hours scan- to assess artery continue with dual therapy: Plavix. asa A.cs. protocol aspirin, statin and beta-edgard, and isosorbide mononitrate ER 60 mg p.o. daily Antibiotics: zosyn 3 375 gm IV every 8 hrs for Klebsiella pneumoniae on urine, we can transitioned to p.o. once discharged Test: Echo noted Labs cbc, cmp, mag+ in a.m. Replace electrolytes as needed as per protocol to keep potassium above 4.0 magnesium 2.0. Home medications pending to be reviewed by RN nurse. PRN: MEDICATIONS Tylenol 650 mg po every 4 hrs for fever Zofran 4 mg IV every 6 hrs for n/v Hydralazine 5 mg IV every 4 hrs systolic pressure > 160 bowel regiment: lactulose 20 gm PO BID PRN constipation Pain management: None Supportive measures: DVT ppx, GI ppx all questions answered Supervising MD: c/d This document was generated in part using voice recognition software, occasional wrong word or sound alike substitutions may have occurred due to the inherent limitations of voice recognition software. Read the chart carefully and recognize using context, where the substitutions have occurred. Although every effort was made to edit the content, special forces weapons sergeant and typing errors may occur Discharge Instructions: PLAN continue with the a DAPT- aspirin and Plavix, statin therapy, and antianginal Imdur with beta edgard Follow up with Cardiothoracic surgeon, Dr. Fields next disease Follow-up with PCP in 2-3 days Home Medications: Reported Medications Carvedilol (Carvedilol) 6.25 Mg Tablet, 1 TAB PO BID for 30 Days, #60 TAB 0 Refills 11/18/24 Amlodipine Besylate (Amlodipine Besylate) 5 Mg Tablet, 1 TAB PO BID for 30 Days, #30 TAB 0 Refills 11/18/24 Glimepiride (Glimepiride) 2 Mg Tablet, 1.5 MG PO DAILY, TAB 11/18/24 Olmesartan/Hydrochlorothiazide (Olmesartan-Hctz 40-25 mg Tab) 40 Mg-25 Mg Ta blet, 1 TAB PO DAILY for 30 Days, #30 TAB 0 Refills 11/18/24 Atorvastatin Calcium (Atorvastatin Calcium) 40 Mg Tablet, 1 TAB PO DAILY for 30 Days, #30 TAB 0 Refills 11/18/24 Aspirin (ASPIRIN 81 MG ECTAB) 81 Mg Ectab, 81 MG PO DAILY, TAB.EC 11/18/24 Sitagliptin Phos/Metformin HCl (Janumet 50-1,000 mg Tablet) 50 Mg-1,000 Mg Tablet, 1 TAB PO BID for 30 Days, #60 TAB 0 Refills 11/18/24 Time spent arranging discharge: 31-60 minutes ATTESTATION BY PHYSICIAN I have seen and examined the patient. I reviewed the documentation, medical d ecision making, and treatment plan as noted by the mid-level provider above. I agree with the findings and plan of care. Luciana Meneses MD, [facility] Nov 20, 2024 14:33
[2024-11-21] VITALS (10 sets, daily range): BP systolic 103–137; BP diastolic 60–71; PULSE 51–66; RESP 18–20; TEMP 97.8–98.4; O2SAT 97–98
[2024-11-21 04:21] LABS: MEAN CORPUSCULAR HEMOGLOBIN 29.8 pg (27.0-33.0); MEAN CORPUSCULAR HGB CONC 33.2 g/dL (32.0-36.0); MEAN CORPUSCULAR VOLUME 89.6 fL (79-99); RED BLOOD CELL COUNT(AUTO) 3.46 MIL/uL (4.00-5.50); RED CELL DISTRIBUTION WIDTH 13.1 % (11.0-15.5)
[2024-11-21 05:30] LABS: CREATININE 1.1 mg/dL (0.5-1.0); MAGNESIUM 1.9 mg/dL (1.80-2.40); POTASSIUM 3.3 mmol/L (3.5-5.1)
--- NOTE | 2024-11-21 17:19 | HMCSR ---
APPROVED REPORT Height: 5 ft 5in Weight: 175 lbs TEST INDICATIONS Multivessel Cardiac Disease The imaging protocol used to acquire images was Rest Tc-99m/stress Tc-99m 1 day Consent: The procedure was explained and understood by the patient. Informerd consent was witnessed Nell Rojas RN First, low dose rest was performed then high dose stress. RESTING DATA: The resting ekg shows: NSR Rest SPECT myocardial perfusion imaging was performed in supine position minutes following the intra venous injection of 8 mCi of Tc-99 Sestamibi. Time of rest injection: 12:00: Date: 11/20/2024 PHARMACOLOGIC STRESS: Pharmacologic stress test was performed by injecting regadenoson 0.4 mg IV push followed by the intra venous injection of 32 mCi of Tc-99 Sestamibi. Time of stress injection: 14:00: Date: 11/20/2024 Heart Rate at time of stress injection: 62 bpm. The images were gated to evaluate regional wall motion and calculate left ventricular ejection fracti on. STRESS DETAILS Reason for Termination: Infusion complete Stress Symptoms: Dyspnea Max HR Achieved: 100 bpm % of APMHR Achieved: 82 Max Blood Pressure: 159/75 mmHg Stress ECG: NSR with diffuse ST depressions. Arrhythmia: No. ST Change: Yes. Study quality was good. Lung uptake was Normal. Artifact: No artifact LEFT VENTRICLE Size: The left ventricular size is normal. Systolic Function:The left ventricular systolic function is normal. Wall Motion: No regional wall motion abnormalities noted. The left ventricular ejection fraction was calculated to be 65%.TID = 1.60. LV PERFUSION Large sized, severe severity fixed perfusion defect at the distal septal segment including the apex. Small size, moderate severity reversible perfusion defect at the basal anterior and anterior septal s egments. Large size, moderate severity reversible perfusion defect of the lateral wall. RV Size/Shape Not well visualized. IMPRESSION Severely abnormal pharmacologic nuclear stress test. Diseased Vessels: Multivessel or Left main. Global LV Function: Normal Stress ECG Summary: Abnormal LV Perfusion Summary: Abnormal LV Viability Summary: Significantly viable myocardium Conclusion Large sized, severe severity fixed perfusion defect at the distal septal segment including the apex c onsistent with infarct/scar. Small size, moderate severity reversible perfusion defect at the basal anterior and anterior septal s egments consistent with ischemia. Large size, moderate severity reversible perfusion defect of the lateral wall consistent with ischemi a. 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 Results indicate high risk for cardiac events.
--- NOTE | 2024-11-21 21:36 | PN ---
FOLLOWUP AND CONSULTATION A 78-year-old patient of Dr. Son Truong. I have had the opportunity to review the films, review the medical record. Examined the patient and discussed the case with Dr. Truong. Lexiscan was performed and demonstrated the patient has some viability on the high anterior septum and lateral wall. The apex has a fixed deficit. I had the opportunity to explain this to the patient and her family including the fact that she may have a survival benefit ____ internal mammary artery on the LAD and try to bypass the left circumflex and perhaps the PDA. She would like to think about it and wants to be discharged and follow up as an outpatient. We will see her in the office. TID: [id number] RECEIPT: [id number]
[2024-11-22 03:28] VITALS: BP 112/59; PULSE 65; RESP 18; TEMP 98.6
[2024-11-22 07:00] VITALS: BP 125/58; PULSE 58; RESP 20; TEMP 98.6
[2024-11-22 08:00] VITALS: O2SAT 96
[2024-11-22] MEDS ORDERED: Isosorbide Mono 60MG Sr Tab PO (08:33)
[2024-11-22] MEDS ORDERED: CEPH500B PO (08:33)
[2024-11-22] MEDS ORDERED: CLOP-31 PO (08:33)
[2024-11-22] MEDS ORDERED: Nitroglycerin 0.4MG Sl Tab SL (08:33)
[2024-11-22] MEDS ORDERED: METO25 PO (08:33)
[2024-11-22 11:00] VITALS: BP 125/54; PULSE 53; RESP 20; TEMP 98.8
--- NOTE | 2024-11-22 12:37 | NUR ---
PATIENT AND FAMILY AT BEDSIDE WERE GIVEN DISCHARGE INSTRUCTIONS. PIV TO LEFT WRIST WAS REMOVED WITH CATHETER INTACT AND DRY DRESSING APPLIED. EDUCATION AND APPOINTMENTS WERE PROVIDED. ALL BELONGINGS WERE ACCOUNTED AND TAKEN BY FAMILY. PATIENT DENIES ANY CHEST PAIN NOR ANY SHORTNESS OF BREATH. TELE LUAN WAS REMOVED AND RETURNED TO TELEMETRY ROOM. PATIENT WAS TAKEN TO PRIVATE VEHICLE VIA WHEEL CHAIR.
--- NOTE | 2024-11-22 14:06 | DS ---
Discharge Summary Hospital Course Summary: 78-YEAR-OLD FEMALE WITH HISTORY OF HYPERTENSION, DYSLIPIDEMIA, TYPE 2 DIABETES,, DEPRESSION IN CAD. PATIENT PRESENTED TO THE ED WITH CHEST PAIN ASSOCIATED WITH SHORTNESS OF BREATHS. ON THE DAY OF ADMISSION, HER CHEST PAIN BECAME PROGRESSIVELY WORSE. SHE ALSO HAS UTI THAT WAS NOTED ON ADMISSION. PATIENT IS BEING FOLLOWED BY [facility]. PATIENT WAS ADMITTED FOR FURTHER CARDIAC WORKUP, PATIENT HAD A LEFT HEART CATHETERIZATION DONE ON 11/16/[address] TRUONG FOR WHICH FINDINGS SHOWED "severely calcified on fluoroscopy alone involving the left main LAD left circumflex and RCA. The left main artery bifurcates into the LAD and left circumflex is severely calcified and has 30-50% stenosis noted throughout its course. The proximal LAD is occluded 100% but is filling with significant [id number] collaterals from the RCA with filling of the entirety of the LAD noted and there was a 90% apical LAD stenosis present upon retrograde filling. The left circumflex artery has an ostial stenosis of approximately 70% before it gives rise to 2 small obtuse marginal branch vessels. The ongoing left circumflex does give rise to a moderate sized obtuse marginal branch 3. Which is subtotaled in its proximal segment before it bifurcates distally. The ongoing interventricular circumflex vessel has an 85% stenosis distally. The right coronary artery has luminal irregularities noted throughout the body of the RCA before it gives rise to the RPDA with an ostial 85-90% stenosis and the RPL which has a 95-98% stenosis noted in its mid segment. The left subclavian artery is patent as is the left internal mammary artery. Ejection fraction is noted to be 65%. There was no evidence of aortic stenosis or mitral regurgitation. " RECOMMENDATION IS CT SURGERY CONSULTATION FOR SURGICAL REVASCULARIZATION CONSIDERATION, OPTIMIZE GOAL DIRECTED MEDICAL THERAPY BLOOD PRESSURE TOLERATES, ANTICOAGULATION WITH HEPARIN. PATIENT WAS EVALUA TOMY BY 1ST DR. PUENTES, WHO INITIALLY INDICATED THAT PATIENT IS NOT A SURGICAL CANDIDATE AND 2ND OPINION WAS NOTED BY DR. FIELDS. AT THIS POINT, DR. FIELDS REVIEWED THE FILMS AND DISCUSSED THE CASE WITH DR. TRUONG AND THEY BOTH AGREE THAT PLACING THE RAM TO THE LAD WITH IMPROVED SURVIVAL OF THE PATIENT HOWEVER THEY BOTH THINK THAT THE MAJORITY OF THE SYMPTOMS MAY BE COMING FROM THE POSTEROLATERAL VENTRICULAR BRANCH, WHICH IS TOO SMALL TO BYPASS. HE DISCUSSED WITH THE FAMILY INPATIENT THAT HIS RECOMMENDATION IS TO PERFORM A LEXISCAN TO SEE IF THERE IS ISCHEMIA ON THE ANTEROLATERAL WALL IN WHICH CASE THEN RAM TO THE LAD AND PERHAPS BYPASS IN THE PDA AND THE OBLIQUE MARGINAL WITH BE INDICATED. WE ARE PENDING ON THE LEXISCAN STRESS TEST, FOR THE MEANTIME SINCE PATIENT IS ASYMPTOMATIC AND HAS ADEQUATE COLLATERALS MEDICAL THERAPY IS RECOMMENDED. PATIENT WILL BE DISCHARGED TODAY Lexiscan resulted and as per CTS, patient does not need immediate surgery and can follow up with them in the clinic. Patient and daughter in the room and verbalized understanding of the plan. Patient we will be able to be discharged now, discussed discharge medications including antibiotics to be completed secondary to her UTI, which came back positive with Klebsiella pneumoniae. Pairer Substandard(s): Dr. Nikos Truong- solution manager Dr. Fields- CTS Procedure(s): 11/16/24- Left Heart Cath-by Dr. Nikos Truong PROCEDURE: 1. Right common femoral arterial sheath placement. 2. Selective coronary angiogram. 3. Left heart catheterization. 4. Left ventriculogram. 5. Left subclavian arteriogram 6. Conscious sedation INDICATIONS: Non STEMI Post infarct angina Assessment/Plan: Discharge diagnoses: Non-STEMI post infarct angina POA s/p left heart cath- continue with the a DAPT- aspirin and Plavix, statin therapy, and antianginal Imdur with beta edgard S/p Left heart cath 3 vessel disease-surgical intervention still pending, at this time Lexiscan has been recommended by Cardiothoracic surgeon. Lexiscan is disease there is ischemia on anterolateral wall in which case can RAM to the LAD and perhaps bypass in the PDA and the oblique marginal with be indicated Unstable angina POA HTN uncontrolled POA KHURRAM on Chronic ARF POA UTI gram negative Klebsiella Pneumoniae POA DM Type II: Hyperglycemia POA Hyperlipidemia anxiety/depression Admitting diagnoses Non-STEMI post infarct angina POA s/p left heart cath. S/p Left heart cath 3 vessel disease: Unstable angina POA HTN uncontrolled POA KHURRAM on Chronic ARF POA UTI gram negative Klebsiella Pneumoniae POA DM Type II: Hyperglycemia POA Hyperlipidemia anxiety/depression PLAN: Admit: PCCU condition: Stable Status: Full code Heparin drip has been discontinued Consultants cardiology's s/p Heart cath, CT surgery appreciate input given findings of left heart catheterization patient is not a good surgical candidate per Dr. Puentes 2nd opinion: Dr Fields, recommended for nuclear med viability 24 hours scan- to assess artery continue with dual therapy: Plavix. asa A.cs. protocol aspirin, statin and beta-edgard, and isosorbide mononitrate ER 60 mg p.o. daily Antibiotics: zosyn 3 375 gm IV every 8 hrs for Klebsiella pneumoniae on urine, we can transitioned to p.o. once discharged Test: Echo noted Labs cbc, cmp, mag+ in a.m. Replace electrolytes as needed as per protocol to keep potassium above 4.0 magnesium 2.0. Home medications pending to be reviewed by RN nurse. PRN: MEDICATIONS Tylenol 650 mg po every 4 hrs for fever Zofran 4 mg IV every 6 hrs for n/v Hydralazine 5 mg IV every 4 hrs systolic pressure > 160 bowel regiment: lactulose 20 gm PO BID PRN constipation Pain management: None Supportive measures: DVT ppx, GI ppx all questions answered Supervising MD: c/d This document was generated in part using voice recognition software, occasional wrong word or sound alike substitutions may have occurred due to the inherent limitations of voice recognition software. Read the chart carefully and recognize using context, where the substitutions have occurred. Although every effort was made to edit the content, sisal picker and typing errors may occur Discharge Instructions: PLAN continue with the a DAPT- aspirin and Plavix, statin therapy, and antianginal Imdur with beta edgard Follow up with Cardiothoracic surgeon, Dr. Fields next disease Follow-up with PCP in 2-3 days Home Medications: Active Scripts Cephalexin Monohydrate (Keflex) 500 Mg Cap, 1 CAP PO BID for 7 Days, #14 CAP 0 Refills Prov:JOY KOENIG 11/22/24 [Nitroglycerin 0.4MG Sl Tab] 0.4 MG TAB.SUBL No Conflict Check, 0.4 MG SL AD PRN for CHEST PAIN, #30 0 Refills Prov:JOY KOENIGPCJEN 11/22/24 Metoprolol Tartrate (Lopressor) 25 Mg Tab, 25 MG PO BID, #60 TAB 0 Refills Prov:JOY KOENIGPCNP 11/22/24 [Isosorbide [place] 60MG Sr Tab] 60 MG TAB.ER.24H No Conflict Check, 60 MG PO DAILY, #30 0 Refills Prov:JOY KOENIGPCJEN 11/22/24 Clopidogrel Bisulfate (Plavix) 75 Mg Tablet, 75 MG PO DAILY, #30 TAB 0 Refills Prov:[facility]ENIG [facility] 11/22/24 Reported Medications Glimepiride (Glimepiride) 2 Mg Tablet, 1.5 MG PO DAILY, TAB 11/18/24 Atorvastatin Calcium (Atorvastatin Calcium) 40 Mg Tablet, 1 TAB PO DAILY for 30 Days, #30 TAB 0 Refills 11/18/24 Aspirin (ASPIRIN 81 MG ECTAB) 81 Mg Ectab, 81 MG PO DAILY, TAB.EC 11/18/24 Sitagliptin Phos/Metformin HCl (Janumet 50-1,000 mg Tablet) 50 Mg-1,000 Mg Tablet, 1 TAB PO BID for 30 Days, #60 TAB 0 Refills 11/18/24 Discontinued Reported Medications Carvedilol (Carvedilol) 6.25 Mg Tablet, 1 TAB PO BID for 30 Days, #60 TAB 0 Refills 11/18/24 Amlodipine Besylate (Amlodipine Besylate) 5 Mg Tablet, 1 TAB PO BID for 30 Days, #30 TAB 0 Refills 11/18/24 Olmesartan/Hydrochlorothiazide (Olmesartan-Hctz 40-25 mg Tab) 40 Mg-25 Mg Tablet, 1 TAB PO DAILY for 30 Days, #30 TAB 0 Refills 11/18/24 Time spent arranging discharge: 31-60 minutes ATTESTATION BY PHYSICIAN I have seen and examined the patient. I reviewed the documentation, medical decision making, and treatment plan as noted by the mid-level provider above. I agree with the findings and plan of care. GIANNA ARCE MD, [facility] Nov 22, 2024 14:06
--- NOTE | 2024-11-22 14:16 | PN ---
[facility] PROGRESS NOTE Date of Service: Nov 21, 2024 - late dictation Time of Service: 14:08 SUBJECTIVE: [ ] admission date: 11/16/24 PCP: Hiwot Stockton DO chief complaints: weakness, chest tightness This is a 78-year-old female with a significant medical history of diabetes type 2, hypertension, hyperlipidemia presents in ER with chief complaints of weakness, and chest discomfort. Onset ongoing for one-week. Symptoms come and go duration about 30 minutes. Chest pain location :midsternal radiates to mid back associated with GI symptoms nausea and vomiting. Severity moderate. Denies dizziness, palpitation, shortness for breath with minimal exertion, chills and fever. Patient reports the last few three days symptoms have been constantly and decided to come to ER for further evaluation and treatment. ER workup troponin elevated non-STEMI, urinalysis positive for UTI. 11/19 patient was evaluated in the room this morning, she is status post left heart catheterization with three system coronary artery disease, patient has an occluded left anterior descending artery that fills via [id number] collaterals. Patient also was started with calcified vessel and has stenosis in the distal 1/3 segment. The vessel is also small and appears to be poor target for coronary artery bypass grafting with a left internal mammary artery per Dr. Arguello patient would not make for a good surgical candidate for this reason. I spoke to the patient and family at bedside who who are requesting 2nd opinion. We will await for further recommendations from CTS surgeon. 11/20 patient was evaluated with daughter at bedside, Dr. Zaragoza has seen the patient last night and recommended nuclear med viability to assess artery. We will await for the results. So far patient has no acute events reported overnight. Patient is currently NPO. 11/21 Patient was evaluated in the room. We are awaiting for Dr. Zaragoza to give final recommendation. She had lexiscan. Discussed DC plan with patient and family, they were concern with her daily routine especially the Aerobic exercises that she was ue to prior to hospital stay. REVIEW OF SYSTEMS a 14 point ROS obtained all relevant positives were documented otherwise ROS negative. PHYSICAL EXAM GENERAL APPEARANCE: The patient is awake, alert, and oriented, in no acute cardiopulmonary distress. NEUROLOGICAL: Cranial nerves II-XII grossly intact. Motor is 5/5 in bilateral upper and lower extremities proximal to distal. No sensory deficits. HEENT: Face is symmetric. Pupils are equal and reactive. Extraocular movements are intact. NECK: Supple. No JVD. No thyromegaly. No submental, submandibular, pre- /postauricular, occipital or supraclavicular lymphadenopathy. CHEST: Normal chest expansion. No Telemetry. LUNGS: Absence of any rales, rhonchi or any wheezing. CARDIOVASCULAR: Regular. S1 and S2 normal. No appreciable rubs, murmurs or gallops. ABDOMEN: Soft, nontender, and nondistended. There is no rebound, voluntary guarding, or rigidity. : Deferred. No Enriquez. EXTREMITIES: Non-edematous and not cyanotic. No clubbing. Good capillary refill. SKIN: No skin breakdown. Vital Signs (last 8hr) Date Time Temp Pulse Resp B/P (MAP) Pulse Ox O2 Delivery O2 Flow Rate FiO2 11/22/24 11:00 98.8 53 20 125/54 99 Room Air 11/22/24 08:00 96 Room Air* 0 21 11/22/24 07:00 98.6 58 20 125/58 97 Room Air LABS: Laboratory: Test 11/22/24 11:10 11/21/24 19:41 11/21/24 04:11 Range/Units Whole Blood Glucose 266 #H 70-110 MG/DL Bedside Glucose Comment Notified Nurse Potassium Level 4.2 3.5-5.1 mmol/L White Blood Count 10.0 4.8-10.8 K/uL Red Blood Count 3.46 L 4.00-5.50 MIL/uL Hemoglobin 10.3 L 12.0-16.0 g/dL Hematocrit 31.0 L 36-48 % Mean Corpuscular Volume 89.6 79-99 fL Mean Corpuscular Hemoglobin 29.8 27.0-33.0 pg Mean Corpuscular Hemoglobin Concent 33.2 32.0-36.0 g/dL Red Cell Distribution Width 13.1 11.0-15.5 % Platelet Count 223 130-400 K/uL Mean Platelet Volume 11.2 H 7.5-10.5 fL Nucleated Red Blood Cells 0.0 0.0-0.19 % Sodium Level 141 136-145 mmol/L Chloride Level 105 101-111 mmol/L Carbon Dioxide Level 27 21-32 mmol/L Blood Urea Nitrogen 16 7-18 mg/dL Creatinine 1.1 H 0.5-1.0 mg/dL Glomerular Filtration Rate Calc 52 >90 mL/min Random Glucose 131 H 70-105 mg/dL Total Calcium 9.1 8.5-10.1 mg/dL Magnesium Level 1.90 1.80-2.40 mg/dL Current Medications Medications (Trade) Dose Ordered Sig/Loyda Route PRN Reason Start Time Stop Time Status Last Admin Dose Admin Acetaminophen (TYLenol 325MG TAB) 650 mg Q4H PRN PO TEMPERATURE GREATER THAN 101.5 11/16/24 14:00 11/22/24 13:01 DC Aspirin (Aspirin 81mg Chew Tab) 81 mg DAILY PO 11/17/24 09:00 11/22/24 13:01 DC 11/22/24 09:58 81 MG Atorvastatin Calcium (LIPItor 20MG) 20 mg HS PO 11/16/24 21:00 11/16/24 14:43 DC Atorvastatin Calcium (LIPItor 40MG) 40 mg HS PO 11/16/24 21:00 11/22/24 13:01 DC 11/21/24 22:17 40 MG Ceftriaxone Sodium (ROCEphine 1G INJ) 1 gm Q24H IVPB 11/16/24 14:00 11/18/24 08:51 DC 11/17/24 13:23 1 GM Clopidogrel Bisulfate (plaVIX 300MG TAB) 300 mg ONCE PO 11/16/24 14:30 11/16/24 14:42 DC Clopidogrel Bisulfate (plaVIX 75MG) 75 mg DAILY PO 11/17/24 09:00 11/22/24 13:01 DC 11/22/24 09:56 75 MG Famotidine (Pepcid 20mg Tab) 20 mg Q24H PO 11/16/24 21:00 11/22/24 13:01 DC 11/21/24 22:17 20 MG Heparin Sodium (Porcine) (HEParin 5,000 UNIT VIAL) *calculation based on ACTUAL B... AD PRN IV HEPARIN PROTOCOL 11/16/24 13:30 11/18/24 11:05 DC 11/16/24 12:40 6,000 UNIT Heparin Sodium/ Dextrose 250 ml @ 0 mls/hr Q6H IV 11/16/24 13:30 11/18/24 11:05 DC 11/17/24 12:31 8.85 MLS/HR Insulin Human Regular (humuLIN R 100 UNIT/ML 3ML) INSULIN SLIDING SCAL... ACHS SQ 11/16/24 16:30 11/22/24 13:01 DC 11/21/24 22:19 6 UNIT Isosorbide Mononitrate (Imdur 60mg Sr) 60 mg DAILY PO 11/18/24 11:30 11/22/24 13:01 DC 11/22/24 09:55 60 MG Lactulose (Constulose 20gm/ 30ml Udcup) 20 gm BID PRN PO CONSTIPATION 11/16/24 14:30 11/22/24 13:01 DC Magnesium Sulfate 50 ml @ 0 mls/hr PROTOCOL PRN IV low mag level 11/16/24 14:30 11/22/24 13:01 DC 11/17/24 05:21 25 MLS/HR Metoprolol Tartrate (loprESSOR) 12.5 mg BID PO 11/16/24 21:00 11/16/24 14:36 DC Metoprolol Tartrate (loprESSOR) 12.5 mg ONCE PO 11/16/24 15:00 11/16/24 14:55 DC Metoprolol Tartrate (loprESSOR) 25 mg BID PO 11/16/24 21:00 11/22/24 13:01 DC 11/22/24 09:56 25 MG Nitroglycerin (Nitrostat) 0.4 mg AD PRN SL CHEST PAIN 11/16/24 15:00 11/22/24 13:01 DC Ondansetron HCl (zoFRAN 4MG INJ) 4 mg Q6H PRN IVP NAUSEA/VOMITING 11/16/24 14:00 11/22/24 13:01 DC Piperacillin Sod/ Tazobactam Sod (Zosyn 3.375gm+NS 50ml) 3.375 gm Q8H IVPB 11/18/24 09:00 11/22/24 13:01 DC 11/22/24 01:29 3.375 GM Potassium Chloride 100 ml @ 100 mls/hr AD PRN IV POTASSIUM PROTOCOL 11/16/24 14:30 11/22/24 13:01 DC Potassium Chloride (K-Dur/Klor-Con 20meq) 20 meq AD PRN PO POTASSIUM PROTOCOL 11/16/24 14:30 11/22/24 13:01 DC 11/21/24 17:58 20 MEQ Potassium Chloride (KCl 10% Elixir 20meq/15ml) 20 meq AD PRN PO POTASSIUM PROTOCOL 11/16/24 14:30 11/22/24 13:01 DC Sodium Chloride 500 ml @ 0 mls/hr Q0M IV 11/16/24 14:30 11/22/24 13:01 DC Sodium Chloride (NS 50ml) 50 ml AD IV 11/18/24 09:00 11/19/24 07:22 DC DIAGNOSTICS / RADIOLOGY: [ ] Assessment: Non-STEMI post infarct angina POA s/p left heart cath- continue with the a DAPT- aspirin and Plavix, statin therapy, and antianginal Imdur with beta edgard S/p Left heart cath 3 vessel disease-surgical intervention still pending, at this time Lexiscan has been recommended by Cardiothoracic surgeon. Lexiscan is disease there is ischemia on anterolateral wall in which case can RAM to the LAD and perhaps bypass in the PDA and the oblique marginal with be indicated Unstable angina POA HTN uncontrolled POA KHURRAM on Chronic ARF POA UTI gram negative Klebsiella Pneumoniae POA DM Type II: Hyperglycemia POA Hyperlipidemia anxiety/depression PLAN: Admit: PCCU condition: Stable Status: Full code Heparin drip has been discontinued Consultants cardiology's s/p Heart cath, CT surgery appreciate input given findings of left heart catheterization patient is not a good surgical candidate per Dr. Arguello 2nd opinion: Dr Zaragoza, recommended for nuclear med viability 24 hours scan- to assess artery- she went for Lexiscan continue with dual therapy: Plavix. asa A.cs. protocol aspirin, statin and beta-edgard, and isosorbide mononitrate ER 60 mg p.o. daily Antibiotics: zosyn 3 375 gm IV every 8 hrs for Klebsiella pneumoniae on urine, we can transitioned to p.o. once discharged Test: Echo noted Labs cbc, cmp, mag+ in a.m. Replace electrolytes as needed as per protocol to keep potassium above 4.0 magnesium 2.0. Home medications pending to be reviewed by RN nurse. PRN: MEDICATIONS Tylenol 650 mg po every 4 hrs for fever Zofran 4 mg IV every 6 hrs for n/v Hydralazine 5 mg IV every 4 hrs systolic pressure > 160 bowel regiment: lactulose 20 gm PO BID PRN constipation Pain management: None Supportive measures: DVT ppx, GI ppx all questions answered Supervising MD: Dr. Hoover c/d This document was generated in part using voice recognition software, occasional wrong word or sound alike substitutions may have occurred due to the inherent limitations of voice recognition software. Read the chart carefully and recognize using context, where the substitutions have occurred. Although every effort was made to edit the content, cargo mate and typing errors may occur ATTESTATION BY PHYSICIAN I have seen and examined the patient. I reviewed the documentation, medical decision making, and treatment plan as noted by the mid-level provider above. I agree with the findings and plan of care. GIANNA HOOVER MD, [facility] Nov 22, 2024 14:16
--- NOTE | 2024-11-22 18:29 | PN ---
[facility] CARDIOLOGY PROGRESS NOTE Date Patient Seen: Nov 22, 2024 Time of Visit: 18:26 Problem List: NSTEMI Interval History: Patient seen on medical unit, family at bedside She has discussed with the surgeon regarding CABG and would like a trial of medical therapy. She is currently chest pain free. Physical Examination: GENERAL: [No acute distress.] HEAD: [Normal with no signs of head trauma.] NECK: [Normal carotid upstrokes without bruits.] LUNGS: [Clear breath sounds bilaterally. No wheezes, or rhonchi.] HEART: [Normal rate and rhythm. Normal S1 and S2 without murmurs, gallop or rub.] VASC: [Peripheral pulses +2 bilaterally.] EXT: [No cyanosis or edema.] SKIN: [No rashes or lesions noted.] NEURO: [Awake, alert, and oriented x3. No focal sensory or strength deficits noted.] Laboratory: [ ] Hematology Labs: Test 11/21/24 04:11 Range/Units White Blood Count 10.0 4.8-10.8 K/uL Red Blood Count 3.46 L 4.00-5.50 MIL/uL Hemoglobin 10.3 L 12.0-16.0 g/dL Hematocrit 31.0 L 36-48 % Mean Corpuscular Volume 89.6 79-99 fL Mean Corpuscular Hemoglobin 29.8 27.0-33.0 pg Mean Corpuscular Hemoglobin Concent 33.2 32.0-36.0 g/dL Red Cell Distribution Width 13.1 11.0-15.5 % Platelet Count 223 130-400 K/uL Mean Platelet Volume 11.2 H 7.5-10.5 fL Nucleated Red Blood Cells 0.0 0.0-0.19 % Chemistry Labs: Test 11/22/24 11:10 11/21/24 19:41 11/21/24 04:11 Range/Units Whole Blood Glucose 266 #H 70-110 MG/DL Bedside Glucose Comment Notified Nurse Potassium Level 4.2 3.5-5.1 mmol/L Sodium Level 141 136-145 mmol/L Chloride Level 105 101-111 mmol/L Carbon Dioxide Level 27 21-32 mmol/L Blood Urea Nitrogen 16 7-18 mg/dL Creatinine 1.1 H 0.5-1.0 mg/dL Glomerular Filtration Rate Calc 52 >90 mL/min Random Glucose 131 H 70-105 mg/dL Total Calcium 9.1 8.5-10.1 mg/dL Magnesium Level 1.90 1.80-2.40 mg/dL Diagnostics / Radiology: IMPRESSION Severely abnormal pharmacologic nuclear stress test. Diseased Vessels: Multivessel or Left main. Global LV Function: Normal Stress ECG Summary: Abnormal LV Perfusion Summary: Abnormal LV Viability Summary: Significantly viable myocardium Conclusion Large sized, severe severity fixed perfusion defect at the distal septal segment including the apex consistent with infarct/scar. Small size, moderate severity reversible perfusion defect at the basal anterior and anterior septal segments consistent with ischemia. Large size, moderate severity reversible perfusion defect of the lateral wall consistent with ischemia. Normal LV systolic function with stress EF 65% Transient ischemic dilation of the left ventricle is present indicative of multivessel obstructive disease or left main equivalent. Results indicate high risk for cardiac events. DICTATED BY: MIESHA LEPE DO DATE: 11/20/24 1321 Impression and Plan: * [id number] myocardial infarction. * Known coronary artery disease, previously asymptomatic. * Abnormal exercise treadmill test in [address] with [address] depressions. * March 2023 echo, EF 60%-65%. * Type 2 diabetes, controlled. * Hypertension. * Dyslipidemia. * Depression. Patient stable from a cardiac standpoint Continue with DAPT (aspirin, clopidogrel) Continue statin therapy Continue antianginal imdur Continue beta edgard metoprolol which she appears to be tolerating. Lexiscan shows ischemia in the anterior, anteroseptal and lateral distribution. She has been evaluated by CTS Dr Zaragoza and given the option for CABG. The patient and family would like a trial of medical therapy. Will continue the medications and see her as an outpatient, and send referral to CTS if she has refractory symptoms. MIESHA LEPE DO Nov 22, 2024 18:29
[2024-12-01] MEDS ORDERED: CARV6.25 PO (00:29)
[2024-12-01] MEDS ORDERED: LOSA25TA41 PO (00:29)
[2024-12-01] MEDS ORDERED: GLIM1TAB56 PO (00:29)
== END 2024-11-22 12:30 | disposition home or self-care (01) | DRG 280 ==
LOC: EDH 09:35 → EDHIP 13:36 → 2AH 15:24
PROVIDERS: ADMIT Hospitalist; ATTEND Hospitalist
PROC: 4A023N7 Measurement of Cardiac Sampling and Pressure, Left Heart, Percutaneous Approach (ICD-10-PCS; principal; 2024-11-16)
PROC: B2151ZZ Fluoroscopy of Left Heart using Low Osmolar Contrast (ICD-10-PCS; 2024-11-16)
PROC: B2111ZZ Fluoroscopy of Multiple Coronary Arteries using Low Osmolar Contrast (ICD-10-PCS; 2024-11-16)
PROC: B3121ZZ Fluoroscopy of Left Subclavian Artery using Low Osmolar Contrast (ICD-10-PCS; 2024-11-16)
PROC: 4A02XM4 Measurement of Cardiac Total Activity, External Approach (ICD-10-PCS; 2024-11-20)
PROC: 3E073KZ Introduction of Other Diagnostic Substance into Coronary Artery, Percutaneous Approach (ICD-10-PCS; 2024-11-20)
DX: I21.4 Non-ST elevation (NSTEMI) myocardial infarction (principal); N17.0 Acute kidney failure with tubular necrosis; I23.7 Postinfarction angina; N39.0 Urinary tract infection, site not specified; E11.65 Type 2 diabetes mellitus with hyperglycemia; I25.110 Atherosclerotic heart disease of native coronary artery with unstable angina pectoris; E78.00 Pure hypercholesterolemia, unspecified; I12.9 Hypertensive chronic kidney disease with stage 1 through stage 4 chronic kidney disease, or unspecified chronic kidney disease; F32.A Depression, unspecified; N18.9 Chronic kidney disease, unspecified; F41.9 Anxiety disorder, unspecified; Z83.3 Family history of diabetes mellitus; Z87.891 Personal history of nicotine dependence; Z91.148 Patient's other noncompliance with medication regimen for other reason; Z91.199 Patient's noncompliance with other medical treatment and regimen due to unspecified reason
CPT/HCPCS: 36415; 71045; 78452; 80048; 80053; 80061; 81001; 82948; 83735; 83880; 84132; 84443; 84484; 85025; 85027; 85610; 85730; 87086; 87186; 93005; 93017; 93306; 93356; 93458; 99156; 99157; 99285; A9500; C1894; G0378; J0696; J1644; J1815; J2250; J2270; J2405; J2543; J2785; J3010; J3475; J3490; Q9967; C1760